=== PATIENT | female | born 1935 | race American Indian/Alaskan Native ===

== ENCOUNTER 2022-09-28 15:16 | Inpatient (IN) ==
[2022-09-28] MEDS ORDERED: ONDANSETRON 4 MG/2 ML VIAL IV ONE (15:29)
--- NOTE | 2022-09-28 15:29 | Emergency Department Note ---
Weakness HPI General Chief complaint: Weakness Stated complaint: WEAKNESS Time Seen by Provider: 09/28/22 15:29 Source: family Mode of arrival: wheelchair Limitations: no limitations History of Present Illness HPI Narrative: Narrative: Patient is an 87-year-old female who presents to the emergency department today with chief complaint of generalized weakness, decreased appetite, nausea, and couple episodes of vomiting over the last couple of days. She has had decreased appetite over the last 2 days and has been lying more in bed. Patient recently developed abscess to the left wrist and elbow and was seen here in the emergency department on September 21, 2022 and started on doxycycline for cellulitis. She was seen by a primary care provider on September 23, 2022 at [facility]. She was complaining of nausea and generalized weakness and developed a larger abscess so she was advised by her PCP to go to the emergency department. She was evaluated for second time here at [facility] emergency department on September 23, 2022 were the left wrist and elbow was x-rayed that did not show any evidence of osteomyelitis. Dr. Crooks had perfromed I&D of the abscesses and at the patient's stop doxycycline and start Bactrim DS. Culture was obtained and results of culture is MRSA positive. Patient has been taking the Bactrim DS and holding her potassium as recommended by her PCP. She has had difficulty keeping down her oral antibiotics over the last couple of days due to nausea and she has been experiencing increased generalized weakness and feeling ill. She has had a cough that is slightly productive of white to light yellow-colored products. She denies any chest pain or shortness of breath. She has had some nausea with 1 episode of vomiting. She has not had any abdominal pains. She does report that she feels slightly confused. Her family members that are here today indicate that she has been sli ghtly more confused than normal and been very weak not wanting to get out of bed. Patient denies having any fevers but has felt chilled at times. Patient describes aching pain to the left wrist and elbow. She has been taking hydrocodone that was prescribed by her primary care but feels that this has not been helpful with managing her pain. Related Data Home Medications Medication Instructions Recorded Confirmed Spiriva 1 tab PO DAILY 01/13/19 11/26/21 albuterol sulfate 2.5 mg/3 mL 1 puff PO DAILY 01/13/19 11/26/21 (0.083 %) solution for nebulization ferrous gluconate 324 mg (37.5 mg 324 mg PO DAILY 01/13/19 11/26/21 iron) tablet folic acid 1 mg tablet 1 mg PO DAILY 01/13/19 11/26/21 carvedilol 12.5 mg tablet 12.5 mg PO BID 02/15/21 11/26/21 cetirizine 10 mg tablet (All Day 10 mg PO QDAY PRN 02/15/21 11/26/21 Allergy (cetirizine)) ergocalciferol (vitamin D2) 1,250 1,250 mcg PO QWEEK 02/15/21 11/26/21 mcg (50,000 unit) capsule famotidine 40 mg tablet 20 mg PO QDAY 02/15/21 11/26/21 amlodipine 5 mg tablet 5 mg PO QDAY 04/19/21 11/26/21 simvastatin 40 mg tablet 40 mg PO DAILY 04/19/21 11/26/21 Previous Rx's Medication Instructions Recorded cefdinir 300 mg capsule 300 mg PO BID #4 caps 07/13/22 albuterol sulfate 2.5 mg/3 mL 2.5 mg (3 mL) inhalation Q4H PRN 08/17/22 (0.083 %) solution for nebulization shortness of breath or wheezing #75 mL albuterol sulfate 90 mcg/actuation 2 puff inhalation Q6H PRN 08/17/22 aerosol inhaler (ProAir HFA) shortness of breath or wheezing #6.7 grams furosemide 20 mg tablet 20 mg PO QAM #5 tabs 08/17/22 losartan 100 mg tablet 100 mg PO QDAY #7 tabs 08/17/22 sulfamethoxazole 800 1 tab PO BID 14 days #28 tabs 09/23/22 mg-trimethoprim 160 mg tablet (Bactrim DS) Allergies Allergy/AdvReac Type Severity Reaction Status Date / Time amitriptyline [AMITRIPTYLINE] Allergy Intermediate Hives Verified 09/28/22 15:20 Review of Systems ROS ROS Narrative: Narrative: All systems ED: reviewed and negative except as stated. [facility] Narrative Patient History Narrative: Narrative: Medical/Surgical/Family History All Active Problems (Updated 09/28/22 @ 18:19 by NIKOLAY Randolph) Septic shock (Chronic) Choledocholithiasis with acute cholecystitis with obstruction (Chronic) Chronic kidney disease (Chronic) Metabolic acidosis, increased anion gap (Chronic) Globus sensation (Chronic) COPD (chronic obstructive pulmonary disease) (Chronic) Chronic sciatica (Chronic) Unstable angina (Chronic) Smoker (Chronic) Lichen planus (Chronic) Varicose veins of lower extremity (Chronic) Chronic ischemic heart disease (Chronic) Hypertensive disorder (Chronic) Osteoporosis (Chronic) Infection of skin (Chronic) 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) Erythematous rash (Chronic) Hip pain (Chronic) Skin tear (Chronic) Right shoulder pain (Chronic) Hearing loss (Chronic) Low back pain (Chronic) Presbyopia (Chronic) 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) Peripheral retinal degeneration (Chronic) Regular astigmatism (Chronic) Hypermetropia (Chronic) After cataract not obscuring vision (Chronic) Arcus senilis (Chronic) Onychogryposis (Chronic) Vitamin D deficiency (Chronic) Xeroderma (Chronic) Chronic nonmalignant pain (Chronic) Emphysema lung (Chronic) GERD (gastroesophageal reflux disease) (Chronic) Stage 1 chronic kidney disease due to benign hypertension (Chronic) Scoliosis of lumbar spine (Chronic) Contusion of rib on left side (Chronic) Right hip pain (Chronic) Bilateral foot pain (Chronic) Serum creatinine raised (Chronic) Osteoarthritis of right knee (Chronic) Tinea corporis (Chronic) Right knee pain (Chronic) Abscess of Bartholin's gland (Chronic) Ingrowing toenail (Chronic) Paronychia of toe of left foot (Chronic) Neurodermatitis (Chronic) Candidiasis of vagina (Chronic) Candidal intertrigo (Chronic) Right inguinal pain (Chronic) Esophageal dysphagia (Chronic) Abnormal urine odor (Chronic) Chronic right-sided low back pain with sciatica (Chronic) Lumbar radiculopathy (Chronic) Facet arthropathy (Chronic) Spondylosis (Chronic) Greater trochanteric bursitis of right hip (Chronic) History of tuberculosis (Chronic) Pancreatitis (Chronic) Anxiety (Chronic) Depression (Chronic) Hypertensive urgency (Chronic) MARIBEL positive (Chronic) Acquired ichthyosis (Chronic) Age-related osteoporosis without current pathological fracture (Chronic) Cellulitis (Chronic) Chest pain (Chronic) GERD without esophagitis (Chronic) Hypertensive nephropathy (Chronic) Pain, joint, shoulder (Chronic) Nicotine dependence (Chronic) Other chronic pain (Chronic) Other megaloblastic anemias, 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) Other secondary cataract, unspecified eye (Chronic) Polyarthropathy of ankle and foot (Acute) CKD (chronic kidney disease) stage 4, GFR 15-29 ml/min (Chronic) Eosinophilia (Acute) Metabolic acidosis with normal anion gap and failure of bicarbonate regeneration (Acute) H/O right nephrectomy (Chronic) HTN (hypertension), benign (Acute) CKD (chronic kidney disease) stage 3, GFR 30-59 ml/min (Acute) Pneumonia (Acute) Acute exacerbation of chronic obstructive airways disease (Acute) Cellulitis (Acute) Lymphangitis (Acute) Abscess of left elbow (Acute) Abscess of skin of left wrist (Acute) Cellulitis and abscess of other specified site (Acute) Nausea & vomiting (Acute) Acute kidney failure (Acute) Medical History Abnormal urine odor Abscess of Bartholin's gland Acquired ichthyosis After cataract not obscuring vision Age-related osteoporosis without current pathological fracture MARIBEL positive Anxiety Arcus senilis Bilateral foot pain Candidal intertrigo Candidiasis of vagina Cellulitis Left Forearm and Right Forearm Chest pain Choledocholithiasis with acute cholecystitis with obstruction Chronic ischemic heart disease Chronic kidney disease Chronic nonmalignant pain Chronic right-sided low back pain with sciatica Chronic sciatica Combined B12 and folate deficiency anemia Contusion of rib on left side COPD (chronic obstructive pulmonary disease) Depression Emphysema lung Erythematous rash Esophageal dysphagia Facet arthropathy GERD without esophagitis Globus sensation Greater trochanteric bursitis of right hip Hearing loss Hip pain History of tuberculosis Hypermetropia Hypertensive disorder Hypertensive nephropathy Infection of skin Ingrowing toenail Lichen planus Low back pain Lumbar radiculopathy Metabolic acidosis, increased anion gap Neurodermatitis Nicotine dependence Nonexudative age-related macular degeneration Onychogryposis Osteoarthritis of right knee Other chronic pain Other megaloblastic anemias, not elsewhere classified Other secondary cataract, unspecified eye Pain, joint, shoulder Right Pancreatitis Paronychia of toe of left foot Peripheral retinal degeneration Presbyopia Regular astigmatism Right hip pain Right inguinal pain Right knee pain Right shoulder pain Scoliosis of lumbar spine Septic shock Serum creatinine raised Skin tear Smoker Spondylosis Stage 1 chronic kidney disease due to benign hypertension Tinea corporis Unstable angina Varicose veins of lower extremity Vitamin D deficiency Xeroderma Senile Surgical History History of surgery Broke hip and pelvis. No pertinent past surgical history Family History Brother Hypertension Diabetes mellitus Heart disease Stroke Cancer Alcohol abuse Grandfather Psoriasis Father , 60 Emphysema lung Mother , 60 Diabetes mellitus Hypertension Heart disease Other Tuberculosis Social History Smoking Status: Former smoker Alcohol Intake Frequency: former alcohol drinker Exam Narrative Narrative: Narrative: General Limitations: no limitations General appearance: Present alert, grimacing and thin Eye Eye: Present normal appearance and PERRL; Absent scleral icterus ENT ENT: Present mucous membranes dry Neck Neck: Present normal inspection and full ROM; Absent lymphadenopathy Chest Chest: Present normal inspection and symmetric chest wall rise Respiratory Respiratory: Present other (Lung sounds clear to auscultate with mild rhonchi heard in the right middle lobe.); Absent respiratory distress or accessory muscle use Cardiovascular Cardiovascular: Present regular rate and normal rhythm Adbominal Abdominal: Present soft; Absent distention, tenderness or mass Extremities Extremities: Present full ROM and normal capillary refill Neurological Neurological: Present alert and oriented X3 Skin Skin: Present other (Wound to the flexor portion of the left wrist and left elbow at the antecubital space. Wound bed is pink with mild erythema. There is some erythema that extends from outside of wound. Moderate serosanguineous discharge. Moderate odor. Left arm tender to palpate.) Course Vital Signs Vital signs: Vital Signs Temperature 97.5 F 09/28/22 15:17 Pulse Rate 73 09/28/22 15:17 Respiratory Rate 22 09/28/22 15:17 Blood Pressure 108/61 09/28/22 15:17 Pulse Oximetry (%) 96 09/28/22 15:17 Oxygen Delivery Method Room Air 09/28/22 15:17 Temperature 97.5 F 09/28/22 15:17 Pulse Rate 73 09/28/22 15:17 Respiratory Rate 22 09/28/22 15:17 Blood Pressure 108/61 09/28/22 15:17 Pulse Oximetry (%) 96 09/28/22 15:17 Oxygen Delivery Method Room Air 09/28/22 15:17 [facility] MDM Narrative Medical decision making narrative: Narrative: Patient is an 87-year-old female who is being seen in the emergency department today for the third time this week. She initially was seen on September 21, 2022 and diagnosed with cellulitis of the left wrist and elbow. She was started on doxycycline, however follow-up with her PCP on September 23, 2022 revealed large abscess and she was feeling nauseated with vomiting so she was advised to go to the emergency department and was seen here September 23, 2022. On September 23 an I&D was performed and antibiotic was changed from doxycycline to Bactrim. Patient has been taking Bactrim over the last couple of days and today presented to the emergency department with complaint of increased weakness, nausea, vomiting. She has pain to the left elbow and wrist. Patient was given 1 L of IV normal saline for hydration, 4 mg ondansetron for nausea, 0.5 mg of Dilaudid for pain management. Labs were obtained today. Patient's wound culture had grew MRSA. Her white count today is elevated at 21,000. She was given 1 g of IV vancomycin. Patient's chest x-ray does not show any definite infiltrate today. Her procalcitonin has trended down since September 23, 2022 that was 4.56, but is still elevated today at 0.99. Patient's urine does not show any definite sign of infection today. 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 Today renal function has worsened with a creatinine of 2.7 with BUN of 138. This change in renal function may be related to dehydration due to the patient not drinking fluids over the last couple of days and lying in bed. She was given 1 L of IV normal saline today for hydration. Her blood pressure is 108/61 with pulse of 73. Oxygen saturation 96% on room air. I would recommend considering discontinuing the home use of furosemide diuretic due to the elevation of her renal function. Patient was ordered another 650 mL of IV fluid in the emergency department today to bolus 30 mL/kg. Given that the patient is having generalized weakness, leukocytosis, nausea and vomiting I feel that she would be considered a candidate for hospital admission today at [facility] for cellulitis. Patient's blood cultures were obtained prior to the vancomycin infusion today. I was able to speak with Dr. Murguia who is on today for hospitalist. He excepted patient for hospital admission at [facility] today. Lab Data Lab results reviewed: Yes I reviewed the patient's lab results. 09/28/22 15:25 Labs: Lab Results 09/28/22 09/28/22 09/28/22 Range/Units 15:25 15:25 15:25 WBC 21.0 H (4.5-11.0) K/mcL RBC 3.36 L (3.59-5.38) M/mcL Hgb 10.1 L (11.2-15.7) g/dL Hct 32.3 L (34.1-44.9) % POC Hct (36-48) MCV 96.1 (80.0-100.0) fL MCH 30.1 (26.0-34.0) pg MCHC 31.3 (31.0-36.0) g/dL RDW 15.5 H (11.5-14.5) % Plt Count 258 (140-440) K/mcL MPV 10.5 (8.8-12.5) fL Immature Gran % (Auto) 1.0 H (0.0-0.5) % Neut % (Auto) 86.8 H (38.0-78.0) % Lymph % (Auto) 5.8 L (15.5-49.0) % Kerr % (Auto) 6.1 (1.0-12.0) % Eos % (Auto) 0.1 (0.0-7.0) % Baso % (Auto) 0.2 (0.0-2.0) % Lymph # (Auto) 1.21 L (1.50-4.80) K/mcL Kerr # (Auto) 1.28 H (0.10-0.90) K/mcL Eos # (Auto) 0.03 (0.00-0.70) K/mcL Baso # (Auto) 0.05 (0.00-0.30) K/mcL Immature Gran # 0.22 H (0.00-0.05) K/mcl Absolute Neutrophils 18.25 H (1.80-8.00) K/mcL POC VBG pH (7.32-7.42) POC VBG pCO2 at Temp (41-51) POC VBG pO2 (25-40) POC VBG HCO3 (24-28) POC VBG Total CO2 (25-29) POC Venous O2 Sat (40-70) POC VBG Base Excess (-2-2) VBG Lactic Acid (0.5-2) POC Sodium (133-145) POC Potassium (3.3-5.1) POC Chloride (96-108) POC Total CO2 (22-30) POC BUN (6-20) POC Creatinine (0.6-1.2) POC Glucose (70-105) POC WB Ioniz Calcium (1.16-1.32) Total Bilirubin 0.3 (0.1-1.0) mg/dL Direct Bilirubin < 0.2 (0-0.3) mg/dL AST 26 (<32) U/L ALT 23 (<40) U/L Alkaline Phosphatase 281 H (39-117) U/L Total Protein 6.6 (5.9-8.4) gm/dL Albumin 3.0 L (3.2-5.2) gm/dL Globulin 3.6 (2.2-3.7) gm/dL Procalcitonin 0.99 H (<0.10) ng/mL 09/28/22 09/28/22 Range/Units 15:29 15:45 WBC (4.5-11.0) K/mcL RBC (3.59-5.38) M/mcL Hgb (11.2-15.7) g/dL Hct (34.1-44.9) % POC Hct 31.0 L (36-48) MCV (80.0-100.0) fL MCH (26.0-34.0) pg MCHC (31.0-36.0) g/dL RDW (11.5-14.5) % Plt Count (140-440) K/mcL MPV (8.8-12.5) fL Immature Gran % (Auto) (0.0-0.5) % Neut % (Auto) (38.0-78.0) % Lymph % (Auto) (15.5-49.0) % Kerr % (Auto) (1.0-12.0) % Eos % (Auto) (0.0-7.0) % Baso % (Auto) (0.0-2.0) % Lymph # (Auto) (1.50-4.80) K/mcL Kerr # (Auto) (0.10-0.90) K/mcL Eos # (Auto) (0.00-0.70) K/mcL Baso # (Auto) (0.00-0.30) K/mcL Immature Gran # (0.00-0.05) K/mcl Absolute Neutrophils (1.80-8.00) K/mcL POC VBG pH 7.32 (7.32-7.42) POC VBG pCO2 at Temp 35.9 L (41-51) POC VBG pO2 73 H (25-40) POC VBG HCO3 18.6 L (24-28) POC VBG Total CO2 20.0 L (25-29) POC Venous O2 Sat 93.0 H (40-70) POC VBG Base Excess -7.0 L (-2-2) VBG Lactic Acid 1.0 (0.5-2) POC Sodium 146 H (133-145) POC Potassium 5.2 H (3.3-5.1) POC Chloride 119 H (96-108) POC Total CO2 19.0 L (22-30) POC BUN 138 H* (6-20) POC Creatinine 2.7 H (0.6-1.2) POC Glucose 97 (70-105) POC WB Ioniz Calcium 1.37 H (1.16-1.32) Total Bilirubin (0.1-1.0) mg/dL Direct Bilirubin (0-0.3) mg/dL AST (<32) U/L ALT (<40) U/L Alkaline Phosphatase (39-117) U/L Total Protein (5.9-8.4) gm/dL Albumin (3.2-5.2) gm/dL Globulin (2.2-3.7) gm/dL Procalcitonin (<0.10) ng/mL Radiology Data Radiology results reviewed: Yes I reviewed the patient's radiology results. Radiology results narrative: Ordering Physician:Zhen Zabala Date of Service:09/28/22 Procedure(s):XR chest 1V INDICATION: cough TECHNIQUE: AP portable supine chest x-ray COMPARISON: Previous chest x-rays dated 08/17/2022, 08/16/2022, 07/13/2022 FINDINGS: Lungs:Prominent interstitial markings are unchanged. No acute parenchymal infiltrate. Possible focal mass at the right lung base. This is not identified on previous PA and lateral chest x-ray dated 08/17/2022. Follow-up PA and lateral chest x-ray recommended when clinically appropriate. Heart, vascular:No significant cardiomegaly. Pulmonary vascularity is normal. No pulmonary edema or pulmonary congestion Mediastinum, kishan:No mediastinal widening. No hilar mass Pleura:No pleural fluid. No pleural-based mass or calcification Skeletal:Negative. IMPRESSION: 1. Possible right basilar nodule. Recommend PA and lateral chest x-ray 2. No other abnormality Interpreted and Authenticated by: Ryan Mancini 09/28/22 Discharge Plan Patient/Caregiver Discharge Instructions Pt seen by ENVIRONMENTAL SERVICE AIDE/PA only: No Clinical Impression: CKD (chronic kidney disease) stage 4, GFR 15-29 ml/min, Cellulitis and abscess of other specified site, Nausea & vomiting, Acute kidney failure Patient Disposition: Xfer As Inpt ([facility]) Discharge Date/Time: 09/28/22 19:13
[2022-09-28 15:34] LABS: POC Calcium, Ionized 1.37 (1.16-1.32); POC Creatinine 2.7 (0.6-1.2); POC Potassium 5.2 (3.3-5.1)
[2022-09-28] MEDS ORDERED: HYDROmorphone 0.5 MG/0.5 ML SYRINGE IV PRN (15:41)
[2022-09-28] MEDS ORDERED: 0.9 % SODIUM CHLORIDE 1,000 ML IV ONE ×2 (15:41→18:10)
[2022-09-28 16:01] LABS: Basophils # (Auto) 0.05 K/mcL (0.00-0.30); Basophils % (Auto) 0.2 % (0.0-2.0); Eosinophils # (Auto) 0.03 K/mcL (0.00-0.70); Eosinophils % (Auto) 0.1 % (0.0-7.0); Hematocrit 32.3 % (34.1-44.9); Hemoglobin 10.1 g/dL (11.2-15.7); Lymphocytes # (Auto) 1.21 K/mcL (1.50-4.80); Lymphocytes % (Auto) 5.8 % (15.5-49.0); Mean Cell Volume 96.1 fL (80.0-100.0); Mean Corpuscular HGB Conc 31.3 g/dL (31.0-36.0); Mean Platelet Volume 10.5 fL (8.8-12.5); Monocytes # (Auto) 1.28 K/mcL (0.10-0.90); Monocytes % (Auto) 6.1 % (1.0-12.0); Neutrophils % (Auto) 86.8 % (38.0-78.0); Platelet Count 258 K/mcL (140-440); RBC 3.36 M/mcL (3.59-5.38); Red Cell Distribution Width 15.5 % (11.5-14.5)
[2022-09-28] MEDS ORDERED: VANCOMYCIN 1,000 MG in 0.9 % SODIUM CHLORIDE 250 ML IV ONE (16:10)
[2022-09-28 16:33] LABS: ALT/SGPT 23 U/L (<40); AST/SGOT 26 U/L (<32); Alkaline Phosphatase 281 U/L (39-117); Bilirubin,Direct < 0.2 mg/dL (0-0.3); Bilirubin,Total 0.3 mg/dL (0.1-1.0); Globulin 3.6 gm/dL (2.2-3.7)
--- NOTE | 2022-09-28 16:54 | XRay Report ---
INDICATION: cough TECHNIQUE: AP portable supine chest x-ray COMPARISON: Previous chest x-rays dated 08/17/2022, 08/16/2022, 07/13/2022 FINDINGS: Lungs:Prominent interstitial markings are unchanged. No acute parenchymal infiltrate. Possible focal mass at the right lung base. This is not identified on previous PA and lateral chest x-ray dated 08/17/2022. Follow-up PA and lateral chest x-ray recommended when clinically appropriate. Heart, vascular:No significant cardiomegaly. Pulmonary vascularity is normal. No pulmonary edema or pulmonary congestion Mediastinum, kishan:No mediastinal widening. No hilar mass Pleura:No pleural fluid. No pleural-based mass or calcification Skeletal:Negative. IMPRESSION: 1. Possible right basilar nodule. Recommend PA and lateral chest x-ray 2. No other abnormality Interpreted and Authenticated by: Ryan Mancini 09/28/22
--- NOTE | 2022-09-28 18:06 | Internal Med History&Physical ---
HPI History of Present Illness Patient information: Note initiated : 09/28/22 at 6:04 pm Service Date, if different from initiated Date: [] Patient: Anahi Lebron 87 y/o F admitted on for WEAKNESS. Chief Complaint: [] History of present illness: Ms. 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 The patient was prescribed doxycycline and discharged to home. She later developed abscesses on her left wrist and left elbow. The patient presented once again to the emergency department on 09/23/2022 and the abscesses were lanced and cultured, the patient was prescribed Bactrim and discharged to home. The cultures did grow MRSA that was sensitive to both doxycycline and Bactrim. The patient developed nausea and vomiting on about 09/25/2022 then became progressively weaker. The patient returned to the ED on 09/28/2022, the day of admission and was found to be septic with an acute on chronic kidney disease injury, mild hyperkalemia in addition generalized weakness. The patient has not been able to take her oral antibiotics due to nausea and vomiting. Hospital medicine was asked to admit the patient for severe sepsis, acute on chronic kidney disease injury and intractable nausea and vomiting. Review of systems Constitutional: no fever, fatigue, or weight loss Eyes: no vision changes or pain Cardiovascular: no chest pain, no palpitations Respiratory: Positive for cough Gastrointestinal: Positive for nausea and vomiting, no abdominal pain Genitourinary: no dysuria or difficulty voiding Musculoskeletal: no arthralgia or myalgia Integumentary: Positive for left elbow and left wrist abscesses Neurological: no focal weakness or numbness Psychiatric: no anxiety or depression Physical exam Head: Atraumatic, normal inspection. Eyes: normal appearance, no scleral icterus. Neck: full ROM Respiratory: no respiratory distress. Cardiovascular: normal rate and rhythm, S1, S2. GI/Abdominal: soft, nontender, no guarding. Extremities: full range of motion, nontender. Neurological: CN II-XII intact, intact motor, intact sensation. Psychiatric: normal mood. Skin: Left upper extremity abscesses covered with clean bandage. PFSH PFSH All Active Problems (Updated 09/28/22 @ 18:19 by Zhen Zabala [facility]) Septic shock (Chronic) Choledocholithiasis with acute cholecystitis with obstruction (Chronic) Chronic kidney disease (Chronic) Metabolic acidosis, increased anion gap (Chronic) Globus sensation (Chronic) COPD (chronic obstructive pulmonary disease) (Chronic) Chronic sciatica (Chronic) Unstable angina (Chronic) Smoker (Chronic) Lichen planus (Chronic) Varicose veins of lower extremity (Chronic) Chronic ischemic heart disease (Chronic) Hypertensive disorder (Chronic) Osteoporosis (Chronic) Infection of skin (Chronic) 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) Erythematous rash (Chronic) Hip pain (Chronic) Skin tear (Chronic) Right shoulder pain (Chronic) Hearing loss (Chronic) Low back pain (Chronic) Presbyopia (Chronic) 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) Peripheral retinal degeneration (Chronic) Regular astigmatism (Chronic) Hypermetropia (Chronic) After cataract not obscuring vision (Chronic) Arcus senilis (Chronic) Onychogryposis (Chronic) Vitamin D deficiency (Chronic) Xeroderma (Chronic) Chronic nonmalignant pain (Chronic) Emphysema lung (Chronic) GERD (gastroesophageal reflux disease) (Chronic) Stage 1 chronic kidney disease due to benign hypertension (Chronic) Scoliosis of lumbar spine (Chronic) Contusion of rib on left side (Chronic) Right hip pain (Chronic) Bilateral foot pain (Chronic) Serum creatinine raised (Chronic) Osteoarthritis of right knee (Chronic) Tinea corporis (Chronic) Right knee pain (Chronic) Abscess of Bartholin's gland (Chronic) Ingrowing toenail (Chronic) Paronychia of toe of left foot (Chronic) Neurodermatitis (Chronic) Candidiasis of vagina (Chronic) Candidal intertrigo (Chronic) Right inguinal pain (Chronic) Esophageal dysphagia (Chronic) Abnormal urine odor (Chronic) Chronic right-sided low back pain with sciatica (Chronic) Lumbar radiculopathy (Chronic) Facet arthropathy (Chronic) Spondylosis (Chronic) Greater trochanteric bursitis of right hip (Chronic) History of tuberculosis (Chronic) Pancreatitis (Chronic) Anxiety (Chronic) Depression (Chronic) Hypertensive urgency (Chronic) MARIBEL positive (Chronic) Acquired ichthyosis (Chronic) Age-related osteoporosis without current pathological fracture (Chronic) Cellulitis (Chronic) Chest pain (Chronic) GERD without esophagitis (Chronic) Hypertensive nephropathy (Chronic) Pain, joint, shoulder (Chronic) Nicotine dependence (Chronic) Other chronic pain (Chronic) Other megaloblastic anemias, 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) Other secondary cataract, unspecified eye (Chronic) Polyarthropathy of ankle and foot (Acute) CKD (chronic kidney disease) stage 4, GFR 15-29 ml/min (Chronic) Eosinophilia (Acute) Metabolic acidosis with normal anion gap and failure of bicarbonate regeneration (Acute) H/O right nephrectomy (Chronic) HTN (hypertension), benign (Acute) CKD (chronic kidney disease) stage 3, GFR 30-59 ml/min (Acute) Pneumonia (Acute) Acute exacerbation of chronic obstructive airways disease (Acute) Cellulitis (Acute) Lymphangitis (Acute) Abscess of left elbow (Acute) Abscess of skin of left wrist (Acute) Cellulitis and abscess of other specified site (Acute) Nausea & vomiting (Acute) Acute kidney failure (Acute) Medical History Abnormal urine odor Abscess of Bartholin's gland Acquired ichthyosis After cataract not obscuring vision Age-related osteoporosis without current pathological fracture MARIBEL positive Anxiety Arcus senilis Bilateral foot pain Candidal intertrigo Candidiasis of vagina Cellulitis Left Forearm and Right Forearm Chest pain Choledocholithiasis with acute cholecystitis with obstruction Chronic ischemic heart disease Chronic kidney disease Chronic nonmalignant pain Chronic right-sided low back pain with sciatica Chronic sciatica Combined B12 and folate deficiency anemia Contusion of rib on left side COPD (chronic obstructive pulmonary disease) Depression Emphysema lung Erythematous rash Esophageal dysphagia Facet arthropathy GERD without esophagitis Globus sensation Greater trochanteric bursitis of right hip Hearing loss Hip pain History of tuberculosis Hypermetropia Hypertensive disorder Hypertensive nephropathy Infection of skin Ingrowing toenail Lichen planus Low back pain Lumbar radiculopathy Metabolic acidosis, increased anion gap Neurodermatitis Nicotine dependence Nonexudative age-related macular degeneration Onychogryposis Osteoarthritis of right knee Other chronic pain Other megaloblastic anemias, not elsewhere classified Other secondary cataract, unspecified eye Pain, joint, shoulder Right Pancreatitis Paronychia of toe of left foot Peripheral retinal degeneration Presbyopia Regular astigmatism Right hip pain Right inguinal pain Right knee pain Right shoulder pain Scoliosis of lumbar spine Septic shock Serum creatinine raised Skin tear Smoker Spondylosis Stage 1 chronic kidney disease due to benign hypertension Tinea corporis Unstable angina Varicose veins of lower extremity Vitamin D deficiency Xeroderma Senile Surgical History History of surgery Broke hip and pelvis. No pertinent past surgical history Family History Brother Hypertension Diabetes mellitus Heart disease Stroke Cancer Alcohol abuse Grandfather Psoriasis Father , 60 Emphysema lung Mother , 60 Diabetes mellitus Hypertension Heart disease Other Tuberculosis Social History (Updated 05/21/21 @ 14:50 by Gela Gutierrez CMA) marital status: single education level: high school smoking status: Former smoker alcohol intake frequency: former alcohol drinker MEDS/ALLERGIES Home Medications and Allergies Home Medications Medication Instructions Recorded Confirmed Type Spiriva 1 tab PO DAILY 01/13/19 11/26/21 History albuterol sulfate 2.5 mg/3 mL 1 puff PO DAILY 01/13/19 11/26/21 History (0.083 %) solution for nebulization ferrous gluconate 324 mg (37.5 mg 324 mg PO DAILY 01/13/19 11/26/21 History iron) tablet folic acid 1 mg tablet 1 mg PO DAILY 01/13/19 11/26/21 History carvedilol 12.5 mg tablet 12.5 mg PO BID 02/15/21 11/26/21 History cetirizine 10 mg tablet (All Day 10 mg PO QDAY PRN 02/15/21 11/26/21 History Allergy (cetirizine)) ergocalciferol (vitamin D2) 1,250 1,250 mcg PO QWEEK 02/15/21 11/26/21 History mcg (50,000 unit) capsule famotidine 40 mg tablet 20 mg PO QDAY 02/15/21 11/26/21 History amlodipine 5 mg tablet 5 mg PO QDAY 04/19/21 11/26/21 History simvastatin 40 mg tablet 40 mg PO DAILY 04/19/21 11/26/21 History cefdinir 300 mg capsule 300 mg PO BID #4 caps 07/13/22 Rx albuterol sulfate 2.5 mg/3 mL 2.5 mg (3 mL) inhalation Q4H PRN 08/17/22 Rx (0.083 %) solution for nebulization shortness of breath or wheezing #75 mL albuterol sulfate 90 mcg/actuation 2 puff inhalation Q6H PRN 08/17/22 Rx aerosol inhaler (ProAir HFA) shortness of breath or wheezing #6.7 grams furosemide 20 mg tablet 20 mg PO QAM #5 tabs 08/17/22 Rx losartan 100 mg tablet 100 mg PO QDAY #7 tabs 08/17/22 Rx sulfamethoxazole 800 1 tab PO BID 14 days #28 tabs 09/23/22 Rx mg-trimethoprim 160 mg tablet (Bactrim DS) Allergies Allergy/AdvReac Type Severity Reaction Status Date / Time amitriptyline [AMITRIPTYLINE] Allergy Intermediate Hives Verified 09/28/22 15:20 EXAM Constitutional Vitals: Temp Pulse Resp BP Pulse Ox O2 Del Method 97.5 F 73 22 108/61 96 Room Air 09/28/22 15:17 09/28/22 15:17 09/28/22 15:17 09/28/22 15:17 09/28/22 15:17 09/28/22 15:17 DATA Data Completed and Pending Labs: Labs from last 24 hours 09/28/22 09/28/22 09/28/22 15:45 15:29 15:25 WBC RBC Hgb Hct POC Hct 31.0 L MCV MCH MCHC RDW Plt Count MPV Immature Gran % (Auto) Neut % (Auto) Lymph % (Auto) [place] % (Auto) Eos % (Auto) Baso % (Auto) Lymph # (Auto) [place] # (Auto) Eos # (Auto) Baso # (Auto) Immature Gran # Absolute Neutrophils POC VBG pH 7.32 POC VBG pCO2 at Temp 35.9 L POC VBG pO2 73 H POC VBG HCO3 18.6 L POC VBG Total CO2 20.0 L POC Venous O2 Sat 93.0 H POC VBG Base Excess -7.0 L VBG Lactic Acid 1.0 POC Sodium 146 H POC Potassium 5.2 H POC Chloride 119 H POC Total CO2 19.0 L POC BUN 138 H* POC Creatinine 2.7 H POC Glucose 97 POC WB Ioniz Calcium 1.37 H Total Bilirubin Direct Bilirubin AST ALT Alkaline Phosphatase Total Protein Albumin Globulin Procalcitonin 0.99 H 09/28/22 09/28/22 15:25 15:25 WBC 21.0 H RBC 3.36 L Hgb 10.1 L Hct 32.3 L POC Hct MCV 96.1 MCH 30.1 MCHC 31.3 RDW 15.5 H Plt Count 258 MPV 10.5 Immature Gran % (Auto) 1.0 H Neut % (Auto) 86.8 H Lymph % (Auto) 5.8 L [place] % (Auto) 6.1 Eos % (Auto) 0.1 Baso % (Auto) 0.2 Lymph # (Auto) 1.21 L [place] # (Auto) 1.28 H Eos # (Auto) 0.03 Baso # (Auto) 0.05 Immature Gran # 0.22 H Absolute Neutrophils 18.25 H POC VBG pH POC VBG pCO2 at Temp POC VBG pO2 POC VBG HCO3 POC VBG Total CO2 POC Venous O2 Sat POC VBG Base Excess VBG Lactic Acid POC Sodium POC Potassium POC Chloride POC Total CO2 POC BUN POC Creatinine POC Glucose POC WB Ioniz Calcium Total Bilirubin 0.3 Direct Bilirubin < 0.2 AST 26 ALT 23 Alkaline Phosphatase 281 H Total Protein 6.6 Albumin 3.0 L Globulin 3.6 Procalcitonin A/P Narrative A/P Narrative: Assessment: 87 year old female with multiple comorbidities per below admitted for severe sepsis secondary to an abscess complicated by acute on chronic kidney disease injury, intractable nausea and vomiting. The patient is hemodynamically stable and lactic acid was normal. 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 -IV fluid, monitor renal function and urine output. -Follow blood cultures x2. -Follow CBC w/ diff and IPP. -Analgesics as needed. -Antiemetic as needed. -PA and lateral chest xray, consider CT chest. -Wound care. -Home medication reconciliation. -Regular diet. -PT consult. -DVT prophylaxis: Heparin SQ. -Disposition: Admit to inpatient PCU status. Time Spent With Patient Time: Total time spent is greater than 50% in coordination of care (as documented) at patient's floor/unit and/or counseling patient:
[2022-09-28] MEDS ORDERED: ACETAMINOPHEN 325 MG TABLET PO PRN (19:22)
[2022-09-28] MEDS ORDERED: ONDANSETRON 4 MG/2 ML VIAL IV PRN (19:22)
[2022-09-28] MEDS ORDERED: LACTULOSE 20 GM/30 ML ORAL.SOL PO PRN (19:22)
[2022-09-28] MEDS ORDERED: SENNOSIDES 1 TABLET PO PRN (19:22)
[2022-09-28] MEDS ORDERED: VANCOMYCIN PER PHARMACY IV ONE (19:22)
[2022-09-28] MEDS: HYDROmorphone 0.5 MG/0.5 ML SYRINGE IV PRN (19:24)
[2022-09-28] MEDS ORDERED: HYDROmorphone 0.5 MG/0.5 ML SYRINGE ONE (19:25)
--- NOTE | 2022-09-28 19:25 | XRay Report ---
INDICATION: Possible basilar node. TECHNIQUE: PA and lateral upright chest x-ray COMPARISON: Previous chest x-ray dated 09/28/2022 FINDINGS: Lungs: Possible nodule at the right cardiophrenic angle on PA projection. This is not well visualized on lateral view but may be in the right lower lobe. Chest CT scan is recommended to determine whether this is a real lesion. No other focal pulmonary parenchymal infiltrate or mass. Heart size and vascularity. No pleural fluid IMPRESSION: 1. Possible right lower lobe nodule 2. Recommend chest CT Interpreted and Authenticated by: Ryan Mancini 09/28/22
[2022-09-28] MEDS: 0.9 % SODIUM CHLORIDE 1,000 ML IV SCH (19:54)
[2022-09-28] MEDS: HEPARIN 5,000 UNIT/ML VIAL SQ SCH (21:29)
[2022-09-28] MEDS: 0.9 % SODIUM CHLORIDE 10 ML SYRINGE IV SCH (21:30)
[2022-09-28] MEDS: DOCUSATE SODIUM 100 MG CAPSULE PO SCH (21:30)
[2022-09-28] MEDS: HYDROcodone/APAP 5/325MG TABLET PO PRN (23:05)
[2022-09-29] MEDS: HYDROmorphone 0.5 MG/0.5 ML SYRINGE IV PRN ×6 (04:14→23:59)
[2022-09-29] MEDS: 0.9 % SODIUM CHLORIDE 1,000 ML IV SCH ×3 (04:15→14:56)
[2022-09-29] MEDS: 0.9 % SODIUM CHLORIDE 10 ML SYRINGE IV SCH ×3 (04:31→20:10)
[2022-09-29 06:10] LABS: Basophils # (Auto) 0.06 K/mcL (0.00-0.30); Basophils % (Auto) 0.4 % (0.0-2.0); Eosinophils # (Auto) 0.26 K/mcL (0.00-0.70); Eosinophils % (Auto) 1.6 % (0.0-7.0); Hematocrit 32.7 % (34.1-44.9); Hemoglobin 9.2 g/dL (11.2-15.7); Lymphocytes # (Auto) 1.03 K/mcL (1.50-4.80); Lymphocytes % (Auto) 6.4 % (15.5-49.0); Mean Cell Volume 107.2 fL (80.0-100.0); Mean Corpuscular HGB Conc 28.1 g/dL (31.0-36.0); Mean Platelet Volume 10.4 fL (8.8-12.5); Monocytes # (Auto) 1.32 K/mcL (0.10-0.90); Monocytes % (Auto) 8.2 % (1.0-12.0); Neutrophils % (Auto) 82.7 % (38.0-78.0); Platelet Count 217 K/mcL (140-440); RBC 3.05 M/mcL (3.59-5.38); Red Cell Distribution Width 15.8 % (11.5-14.5); WBC 16.1 K/mcL (4.5-11.0)
[2022-09-29 06:56] LABS: ALT/SGPT 16 U/L (<40); AST/SGOT 21 U/L (<32); Albumin 2.4 gm/dL (3.2-5.2); Albumin/Globulin Ratio 0.8 (1.0-2.3); Alkaline Phosphatase 231 U/L (39-117); Bilirubin,Direct 0.2 mg/dL (<0.3); Bilirubin,Total 0.5 mg/dL (0.1-1.0); Blood Urea Nitrogen 92 mg/dL (8-23); Calcium 8.3 mg/dL (8.6-10.4); Carbon Dioxide 15 mmol/L (22-30); Chloride 119 mmol/L (96-108); Globulin 3.1 gm/dL (2.2-3.7); Glomerular Filtration Rate 27; Glucose 67 mg/dL (70-105); Lactate Dehydrogenase 191 U/L (135-225); Triglycerides 73 mg/dL (<150); Uric Acid 8.5 mg/dL (2.5-8.0)
[2022-09-29] MEDS ORDERED: VANCOMYCIN PER PHARMACY IV SCH (07:45)
[2022-09-29 09:00] LABS: Vancomycin,Random 8.9 ug/mL
[2022-09-29] MEDS ORDERED: ALBUTEROL SULFATE 2.5 MG/3 ML NEBULIZER INH PRN (09:46)
[2022-09-29] MEDS: DOCUSATE SODIUM 100 MG CAPSULE PO SCH ×2 (10:25→20:09)
[2022-09-29] MEDS: HEPARIN 5,000 UNIT/ML VIAL SQ SCH ×2 (10:25→20:10)
--- NOTE | 2022-09-29 11:54 | Internal Med Progress Note ---
SUBJECTIVE Subjective Patient information: Note initiated : 09/29/22 at 11:54 am Service Date, if different from initiated Date: [] Patient: Anahi Lebron 87 y/o F admitted on 09/28/22 for WEAKNESS. Chief Complaint: [] Interval history: Ms. 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 The patient was prescribed doxycycline and discharged to home. She later developed abscesses on her left wrist and left elbow. The patient presented once again to the emergency department on 09/23/2022 and the abscesses were lanced and cultured, the patient was prescribed Bactrim and discharged to home. The cultures did grow MRSA that was sensitive to both doxycycline and Bactrim. The patient developed nausea and vomiting on about 09/25/2022 then became progressively weaker. The patient returned to the ED on 09/28/2022, the day of admission and was found to be septic with an acute on chronic kidney disease injury, mild hyperkalemia in addition generalized weakness. The patient has not been able to take her oral antibiotics due to nausea and vomiting. Hospital medicine was asked to admit the patient for severe sepsis, acute on chronic kidney disease injury and intractable nausea and vomiting. 09/29 Patient was afebrile overnight, vitals stable. Leukocytosis improving, renal function improving. The patient has an unexpected amount of pain at her left elbow so ordered an MRI left elbow without contrast as the patient also has renal dysfunction. Continue vancomycin IV per pharmacy dosing. Physical exam Head: Atraumatic, normal inspection. Eyes: normal appearance, no scleral icterus. Neck: full ROM Respiratory: no respiratory distress. Cardiovascular: normal rate and rhythm, S1, S2. GI/Abdominal: soft, nontender, no guarding. Extremities: Severe tenderness to palpation at left elbow. Neurological: CN II-XII intact, intact motor, intact sensation. Psychiatric: normal mood. Skin: Left upper extremity abscesses at left elbow and left wrist packed with gauze. Constitutional Vitals: Vital Signs Temp Pulse Resp BP Pulse Ox O2 Del Method 97.9 F 70 20 132/88 99 Room Air 09/29/22 08:01 09/29/22 09:17 09/29/22 09:17 09/29/22 08:01 09/29/22 09:17 09/29/22 08:01 Period Temp Pulse Resp BP Sys/Rogers Pulse Ox O2 Del Method O2 Flow Rate Last 24 Hr 97.2 F-98.3 F 60-77 9-22 108-132/54-88 93-99 Room Air-Room Air Intake and Output 09/28/22 09/29/22 09/29/22 19:59 03:59 11:59 Intake Total 1877 1493 Output Total 476 774 Balance 1877 1017 -774 Weight 55.338 kg 52.787 kg Intake & Output: Intake & Output 09/28/22 09/29/22 09/29/22 19:59 03:59 11:59 Intake Total 1877 1493 Output Total 476 774 Balance 1877 1017 -774 Weight 55.338 kg 52.787 kg Intake: IV 1877 1373 Sodium Chloride 0.9% 1,000 ml @ 1627 1373 125 mls/hr IV .Q8H [facility] Rx#: [id number] Vancomycin 1,000 mg In Sodium 250 Chloride 0.9% 250 ml @ 250 mls/ hr IV ONCE ONE Rx#:[id number] Oral 120 Output: Void Amount 475 770 # of times incontinent of urine 1 4 Other: Meal Breakfast Percent of Meal Consumed 50% Feeding Ability Independent Urine Appearance Clear Clear Urine Color Yellow Yellow # Voids 2 OBJ DATA Labs 09/29/22 05:18 09/29/22 05:18 Labs: Abnormal Lab Results 09/29/22 09/29/22 09/28/22 05:18 05:18 15:45 WBC 16.1 H RBC 3.05 L Hgb 9.2 L Hct 32.7 L POC Hct MCV 107.2 H MCHC 28.1 L RDW 15.8 H Immature Gran % (Auto) 0.7 H Neut % (Auto) 82.7 H Lymph % (Auto) 6.4 L Lymph # (Auto) 1.03 L [place] # (Auto) 1.32 H Immature Gran # 0.11 H Absolute Neutrophils 13.35 H POC VBG pCO2 at Temp 35.9 L POC VBG pO2 73 H POC VBG HCO3 18.6 L POC VBG Total CO2 20.0 L POC Venous O2 Sat 93.0 H POC VBG Base Excess -7.0 L POC Sodium POC Potassium Potassium 5.2 H POC Chloride Chloride 119 H Carbon Dioxide 15 L POC Total CO2 POC BUN BUN 92 H Creatinine 1.7 H POC Creatinine Glucose 67 L Uric Acid 8.5 H Calcium 8.3 L POC WB Ioniz Calcium GGT 201 H Alkaline Phosphatase 231 H Total Protein 5.5 L Albumin 2.4 L Albumin/Globulin Ratio 0.8 L Procalcitonin 09/28/22 09/28/22 09/28/22 15:29 15:25 15:25 WBC RBC Hgb Hct POC Hct 31.0 L MCV MCHC RDW Immature Gran % (Auto) Neut % (Auto) Lymph % (Auto) Lymph # (Auto) [place] # (Auto) Immature Gran # Absolute Neutrophils POC VBG pCO2 at Temp POC VBG pO2 POC VBG HCO3 POC VBG Total CO2 POC Venous O2 Sat POC VBG Base Excess POC Sodium 146 H POC Potassium 5.2 H Potassium POC Chloride 119 H Chloride Carbon Dioxide POC Total CO2 19.0 L POC BUN 138 H* BUN Creatinine POC Creatinine 2.7 H Glucose Uric Acid Calcium POC WB Ioniz Calcium 1.37 H GGT Alkaline Phosphatase 281 H Total Protein Albumin 3.0 L Albumin/Globulin Ratio Procalcitonin 0.99 H 09/28/22 15:25 WBC 21.0 H RBC 3.36 L Hgb 10.1 L Hct 32.3 L POC Hct MCV MCHC RDW 15.5 H Immature Gran % (Auto) 1.0 H Neut % (Auto) 86.8 H Lymph % (Auto) 5.8 L Lymph # (Auto) 1.21 L [place] # (Auto) 1.28 H Immature Gran # 0.22 H Absolute Neutrophils 18.25 H POC VBG pCO2 at Temp POC VBG pO2 POC VBG HCO3 POC VBG Total CO2 POC Venous O2 Sat POC VBG Base Excess POC Sodium POC Potassium Potassium POC Chloride Chloride Carbon Dioxide POC Total CO2 POC BUN BUN Creatinine POC Creatinine Glucose Uric Acid Calcium POC WB Ioniz Calcium GGT Alkaline Phosphatase Total Protein Albumin Albumin/Globulin Ratio Procalcitonin Meds: Medications Acetaminophen (Acetaminophen 325 Mg Tablet) 650 mg PO Q6HP PRN; Protocol PRN Reason: Per Pain Protocol/Fever > 101 Hydrocodone Bitart/Acetaminophen (Hydrocodone/Apap 5/325mg Tablet) 1 tab PO Q4HP PRN; Protocol PRN Reason: Per Pain Protocol Last Admin: 09/28/22 23:05 Dose: 1 tab Albuterol Sulfate (Albuterol Sulfate 2.5 Mg/3 Ml Nebulizer) 2.5 mg INH Q4HP PRN PRN Reason: shortness of breath or wheezing Carvedilol (Carvedilol 12.5 Mg Tablet) 25 mg PO BIDCC [facility]A Cetirizine HCl (Cetirizine 10 Mg Tablet) 10 mg PO HS [facility] Docusate Sodium (Docusate Sodium 100 Mg Capsule) 100 mg PO BID [facility] Last Admin: 09/29/22 10:25 Dose: 100 mg Famotidine (Famotidine 20 Mg Tablet) 20 mg PO BID [facility] Ferrous Gluconate (Ferrous Gluconate 324 Mg Tablet) 324 mg PO DAILY [facility] Folic Acid (Folic Acid 1 Mg Tablet) 1 mg PO DAILY [facility] Heparin Sodium (Porcine) (Heparin 5,000 Unit/Ml Vial) 5,000 unit SQ Q12 [facility] Last Admin: 09/29/22 10:25 Dose: 5,000 unit Hydromorphone HCl (Hydromorphone 0.5 Mg/0.5 Ml Syringe) 0.5 mg IV Q2HP PRN; Protocol PRN Reason: Per Pain Protocol Last Admin: 09/29/22 10:08 Dose: 0.5 mg Sodium Chloride (Sodium Chloride 0.9%) 1,000 mls @ 125 mls/hr IV .Q8H [facility] Last Admin: 09/29/22 04:15 Dose: 125 mls/hr Vancomycin HCl 750 mg/ Sodium (Chloride) 250 mls @ 250 mls/hr IV ONCE ONE Stop: 09/29/22 14:59 Lactulose (Lactulose 20 Gm/30 Ml Oral.Julia) 10 gm PO DAILYP PRN PRN Reason: Constipation Ondansetron HCl (Ondansetron 4 Mg/2 Ml Vial) 4 mg IV Q4HP PRN; Protocol PRN Reason: Nausea And Vomiting Senna (Sennosides 1 Tablet) 2 tab PO HSP PRN PRN Reason: Constipation Simvastatin (Simvastatin 40 Mg Tablet) 20 mg PO HS [facility] Sodium Chloride (0.9 % Sodium Chloride 10 Ml Syringe) 10 ml IV Q8 [facility] Last Admin: 09/29/22 04:31 Dose: Not Given Tiotropium [place] (Tiotropium [place] 18 Mcg Inhalant) 18 mcg INH DAILY [facility] Vancomycin HCl (Vancomycin Per Pharmacy) 1 order IV UD [facility]VIRA; Protocol A/P Narrative A/P Narrative: Assessment: 87 year old female with multiple comorbidities per below admitted for severe sepsis secondary to an abscess complicated by acute on chronic kidney disease injury, intractable nausea and vomiting. The patient is hemodynamically stable and lactic acid was normal. 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 -IV fluid, monitor renal function and urine output. -Follow blood cultures x2. -MRI left elbow without contrast. -CT chest to evaluate for lung nodule/mass. -Follow CBC w/ diff and IPP. -Analgesics as needed. -Antiemetic as needed. -Wound care. -Resume home albuterol, Coreg, cetirizine, Pepcid, simvastatin, Spiriva. -Holding home losartan, furosemide, spironolactone. -Regular diet. -PT consult. -DVT prophylaxis: Heparin SQ. -Disposition: Transfer to [facility]. Time Spent With Patient Time: Total time spent is greater than 50% in coordination of care (as documented) at patient's floor/unit and/or counseling patient: QUALITY VTE Deep Vein Thrombosis/Pulmonary Embolism Present on Admission: No
--- NOTE | 2022-09-29 13:12 | Cat Scan Report ---
INDICATION: Possible lung mass. COMPARISON: Previous chest x-rays dated 09/28/2022, 09/28/2022, 08/17/2022, 02/03/2020 TECHNIQUE: Axial noncontrast enhanced images through the chest. Sagittally and coronally reformatted images. MIP reformatted images. FINDINGS: Lungs:There is moderate centrilobular and paraseptal emphysema with bilateral upper lobe predominance. Appearance is consistent with smoking history. Incidental note is made of a 4 mm right middle lobe pulmonary parenchymal nodule, image 60. This is based against the fissure and is probably a benign lymph node. This is an incidental finding. Previous plain film examinations are suggestive of a possible right basilar nodule near the cardiophrenic angle. There is no corresponding abnormality. No pulmonary parenchymal consolidation. No evidence for pneumonia Mediastinum, vascular:No pathologic mediastinal or hilar adenopathy Thoracic aorta is negative. No aneurysmal dilatation Heart:No significant cardiomegaly. No pericardial effusion. Prominent coronary artery calcification Pleura:No pleural effusion. No pleural-based mass. No pleural calcification Axilla, supraclavicular regions, chest wall:No axillary or supraclavicular adenopathy. Musculoskeletal:Mild compression deformity of the T5 vertebral body. This is unchanged since 02/03/2020 Upper Abdomen:Negative to the limits of noncontrast enhanced examination IMPRESSION: 1. No significant pulmonary nodule identified. No abnormality corresponding to the potential nodule at the right cardiophrenic angle identified on previous chest x-ray 2. Mild T5 compression deformity, unchanged since 02/03/2020 3. Centrilobular and paraseptal emphysema The exam was performed using radiation dose optimization techniques including, but not limited to, automated exposure control, adjustment of the mA and/or kV according to patient size and use of iterative reconstruction technique. Interpreted and Authenticated by: Ryan Mancini 09/29/22
[2022-09-29] MEDS ORDERED: VANCOMYCIN 750 MG in 0.9 % SODIUM CHLORIDE 250 ML IV ONE (14:00)
[2022-09-29] MEDS: CARVEDILOL 12.5 MG TABLET PO SCH (16:05)
[2022-09-29] MEDS: SIMVASTATIN 40 MG TABLET PO SCH (20:09)
[2022-09-29] MEDS: CETIRIZINE 10 MG TABLET PO SCH (20:09)
[2022-09-29] MEDS: FAMOTIDINE 20 MG TABLET PO SCH (20:10)
[2022-09-29] MEDS: HYDROcodone/APAP 5/325MG TABLET PO PRN (20:20)
[2022-09-30] MEDS: 0.9 % SODIUM CHLORIDE 1,000 ML IV SCH (02:05)
[2022-09-30] MEDS: HYDROmorphone 0.5 MG/0.5 ML SYRINGE IV PRN (04:11)
[2022-09-30] MEDS: 0.9 % SODIUM CHLORIDE 10 ML SYRINGE IV SCH ×3 (04:50→21:26)
[2022-09-30] MEDS: HYDROcodone/APAP 5/325MG TABLET PO PRN ×3 (05:04→16:15)
[2022-09-30 06:01] LABS: Basophils # (Auto) 0.05 K/mcL (0.00-0.30); Basophils % (Auto) 0.4 % (0.0-2.0); Eosinophils # (Auto) 0.33 K/mcL (0.00-0.70); Eosinophils % (Auto) 2.8 % (0.0-7.0); Hematocrit 29.5 % (34.1-44.9); Hemoglobin 8.8 g/dL (11.2-15.7); Lymphocytes # (Auto) 1.04 K/mcL (1.50-4.80); Lymphocytes % (Auto) 8.7 % (15.5-49.0); Mean Corpuscular HGB Conc 29.8 g/dL (31.0-36.0); Mean Platelet Volume 10.2 fL (8.8-12.5); Monocytes # (Auto) 0.94 K/mcL (0.10-0.90); Monocytes % (Auto) 7.9 % (1.0-12.0); Neutrophils % (Auto) 79.6 % (38.0-78.0); Platelet Count 243 K/mcL (140-440); RBC 2.98 M/mcL (3.59-5.38); Red Cell Distribution Width 15.1 % (11.5-14.5); WBC 11.9 K/mcL (4.5-11.0)
[2022-09-30 06:22] LABS: ALT/SGPT 16 U/L (<40); AST/SGOT 20 U/L (<32); Albumin 2.4 gm/dL (3.2-5.2); Albumin/Globulin Ratio 0.7 (1.0-2.3); Alkaline Phosphatase 270 U/L (39-117); Bilirubin,Direct 0.3 mg/dL (<0.3); Bilirubin,Total 0.5 mg/dL (0.1-1.0); Blood Urea Nitrogen 47 mg/dL (8-23); Calcium 8.7 mg/dL (8.6-10.4); Carbon Dioxide 17 mmol/L (22-30); Chloride 118 mmol/L (96-108); Globulin 3.3 gm/dL (2.2-3.7); Glomerular Filtration Rate 51; Glucose 63 mg/dL (70-105); Lactate Dehydrogenase 192 U/L (135-225); Phosphorous 2.9 mg/dL (2.5-4.5); Triglycerides 90 mg/dL (<150); Uric Acid 7.9 mg/dL (2.5-8.0)
[2022-09-30] MEDS: FAMOTIDINE 20 MG TABLET PO SCH ×2 (08:28→21:26)
[2022-09-30] MEDS: DOCUSATE SODIUM 100 MG CAPSULE PO SCH ×2 (08:28→21:25)
[2022-09-30] MEDS: CARVEDILOL 12.5 MG TABLET PO SCH ×2 (08:28→17:39)
[2022-09-30] MEDS: FOLIC ACID 1 MG TABLET PO SCH (08:28)
[2022-09-30] MEDS: HEPARIN 5,000 UNIT/ML VIAL SQ SCH ×2 (08:28→21:26)
[2022-09-30] MEDS: FERROUS GLUCONATE 324 MG TABLET PO SCH (08:28)
--- NOTE | 2022-09-30 08:45 | Internal Med Progress Note ---
SUBJECTIVE Subjective Patient information: Note initiated : 09/30/22 at 8:43 am Service Date, if different from initiated Date: [] Patient: Anahi Lebron 87 y/o F admitted on 09/28/22 for WEAKNESS. Chief Complaint: [] Interval history: Ms. 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 The patient was prescribed doxycycline and discharged to home. She later developed abscesses on her left wrist and left elbow. The patient presented once again to the emergency department on 09/23/2022 and the abscesses were lanced and cultured, the patient was prescribed Bactrim and discharged to home. The cultures did grow MRSA that was sensitive to both doxycycline and Bactrim. The patient developed nausea and vomiting on about 09/25/2022 then became progressively weaker. The patient returned to the ED on 09/28/2022, the day of admission and was found to be septic with an acute on chronic kidney disease injury, mild hyperkalemia in addition generalized weakness. The patient has not been able to take her oral antibiotics due to nausea and vomiting. Hospital medicine was asked to admit the patient for severe sepsis, acute on chronic kidney disease injury and intractable nausea and vomiting. 09/29 Patient was afebrile overnight, vitals stable. Leukocytosis improving, renal function improving. The patient has an unexpected amount of pain at her left elbow so ordered an MRI left elbow without contrast as the patient also has renal dysfunction. Continue vancomycin IV per pharmacy dosing. 09/30 Vitals stable overnight, no significant nighttime issues. Leukocytosis improving, hemoglobin has trended down to 8.8. Creatinine normal now. IV fluid discontinued. The patient continues to endorse left elbow tenderness, MRI left elbow ordered. Consulted Dr. Ortiz to evaluate the patient's left upper extremity wounds. CT chest did not show any pulmonary nodules or masses that were suspected on chest x-ray. Physical exam Head: Atraumatic, normal inspection. Eyes: normal appearance, no scleral icterus. Neck: full ROM Respiratory: no respiratory distress. Cardiovascular: normal rate and rhythm, S1, S2. GI/Abdominal: soft, nontender, no guarding. Extremities: Severe tenderness to palpation at left elbow. Neurological: CN II-XII intact, intact motor, intact sensation. Psychiatric: normal mood. Skin: Left upper extremity abscesses at left elbow and left wrist packed with gauze. Constitutional Vitals: Vital Signs Temp Pulse Resp BP Pulse Ox O2 Del Method 97.4 F 80 24 H 159/85 95 Room Air 09/30/22 04:01 09/30/22 06:01 09/30/22 06:01 09/30/22 06:01 09/30/22 06:01 09/29/22 19:55 Period Temp Pulse Resp BP Sys/Rogers Pulse Ox O2 Del Method O2 Flow Rate Last 24 Hr 97.4 F-98.3 F 55-80 10-24 106-159/54-85 94-99 Room Air-Room Air Intake and Output 09/29/22 09/30/22 09/30/22 19:59 03:59 11:59 Intake Total 1450 938 240 Output Total 200 1 1 Balance 1250 937 239 Weight 53.116 kg Intake & Output: Intake & Output 09/29/22 09/30/22 09/30/22 19:59 03:59 11:59 Intake Total 1450 938 240 Output Total 200 1 1 Balance 1250 937 239 Weight 53.116 kg Intake: IV 1250 938 Sodium Chloride 0.9% 1,000 ml @ 1000 938 75 mls/hr IV .[id number] [facility] Rx#: [id number] Vancomycin 750 mg In Sodium 250 Chloride 0.9% 250 ml @ 250 mls/ hr IV ONCE ONE Rx#:[id number] Oral 200 0 240 Output: Void Amount 200 # of times incontinent of urine 1 1 Other: Meal Dinner Percent of Meal Consumed Refused Urine Appearance Clear Urine Color Yellow OBJ DATA Labs 09/30/22 05:26 09/30/22 05:26 Labs: Abnormal Lab Results 09/30/22 09/30/22 09/29/22 05:26 05:26 05:18 WBC 11.9 H RBC 2.98 L Hgb 8.8 L Hct 29.5 L POC Hct MCV MCHC 29.8 L RDW 15.1 H Immature Gran % (Auto) 0.6 H Neut % (Auto) 79.6 H Lymph % (Auto) 8.7 L Lymph # (Auto) 1.04 L Cochran # (Auto) 0.94 H Immature Gran # 0.07 H Absolute Neutrophils 9.49 H POC VBG pCO2 at Temp POC VBG pO2 POC VBG HCO3 POC VBG Total CO2 POC Venous O2 Sat POC VBG Base Excess POC Sodium POC Potassium Potassium 5.5 H 5.2 H POC Chloride Chloride 118 H 119 H Carbon Dioxide 17 L 15 L POC Total CO2 Anion Gap 7.0 L POC BUN BUN 47 H 92 H Creatinine 1.7 H POC Creatinine Glucose 63 L 67 L Uric Acid 8.5 H Calcium 8.3 L POC WB Ioniz Calcium Direct Bilirubin 0.3 H GGT 228 H 201 H Alkaline Phosphatase 270 H 231 H Total Protein 5.7 L 5.5 L Albumin 2.4 L 2.4 L Albumin/Globulin Ratio 0.7 L 0.8 L Procalcitonin 09/29/22 09/28/22 09/28/22 05:18 15:45 15:29 WBC 16.1 H RBC 3.05 L Hgb 9.2 L Hct 32.7 L POC Hct 31.0 L MCV 107.2 H MCHC 28.1 L RDW 15.8 H Immature Gran % (Auto) 0.7 H Neut % (Auto) 82.7 H Lymph % (Auto) 6.4 L Lymph # (Auto) 1.03 L Cochran # (Auto) 1.32 H Immature Gran # 0.11 H Absolute Neutrophils 13.35 H POC VBG pCO2 at Temp 35.9 L POC VBG pO2 73 H POC VBG HCO3 18.6 L POC VBG Total CO2 20.0 L POC Venous O2 Sat 93.0 H POC VBG Base Excess -7.0 L POC Sodium 146 H POC Potassium 5.2 H Potassium POC Chloride 119 H Chloride Carbon Dioxide POC Total CO2 19.0 L Anion Gap POC BUN 138 H* BUN Creatinine POC Creatinine 2.7 H Glucose Uric Acid Calcium POC WB Ioniz Calcium 1.37 H Direct Bilirubin GGT Alkaline Phosphatase Total Protein Albumin Albumin/Globulin Ratio Procalcitonin 09/28/22 09/28/22 09/28/22 15:25 15:25 15:25 WBC 21.0 H RBC 3.36 L Hgb 10.1 L Hct 32.3 L POC Hct MCV MCHC RDW 15.5 H Immature Gran % (Auto) 1.0 H Neut % (Auto) 86.8 H Lymph % (Auto) 5.8 L Lymph # (Auto) 1.21 L Cochran # (Auto) 1.28 H Immature Gran # 0.22 H Absolute Neutrophils 18.25 H POC VBG pCO2 at Temp POC VBG pO2 POC VBG HCO3 POC VBG Total CO2 POC Venous O2 Sat POC VBG Base Excess POC Sodium POC Potassium Potassium POC Chloride Chloride Carbon Dioxide POC Total CO2 Anion Gap POC BUN BUN Creatinine POC Creatinine Glucose Uric Acid Calcium POC WB Ioniz Calcium Direct Bilirubin GGT Alkaline Phosphatase 281 H Total Protein Albumin 3.0 L Albumin/Globulin Ratio Procalcitonin 0.99 H Meds: Medications Acetaminophen (Acetaminophen 325 Mg Tablet) 650 mg PO Q6HP PRN; Protocol PRN Reason: Per Pain Protocol/Fever > 101 Last Admin: 09/29/22 16:06 Dose: 650 mg Hydrocodone Bitart/Acetaminophen (Hydrocodone/Apap 5/325mg Tablet) 1 tab PO Q4HP PRN; Protocol PRN Reason: Per Pain Protocol Last Admin: 09/30/22 08:29 Dose: 1 tab Albuterol Sulfate (Albuterol Sulfate 2.5 Mg/3 Ml Nebulizer) 2.5 mg INH Q4HP PRN PRN Reason: shortness of breath or wheezing [facility] ([facility] 12.5 Mg [facility]t) [facility] Last Admin: 09/30/22 08:28 Dose: 25 mg Cetirizine HCl (Cetirizine 10 Mg Tablet) 10 mg PO HS [facility] Last Admin: 09/29/22 20:09 Dose: 10 mg Docusate Sodium (Docusate Sodium 100 Mg Capsule) 100 mg PO BID [facility] Last Admin: 09/30/22 08:28 Dose: 100 mg Famotidine (Famotidine 20 Mg Tablet) 20 mg PO BID [facility] Last Admin: 09/30/22 08:28 Dose: 20 mg Ferrous Gluconate (Ferrous Gluconate 324 Mg Tablet) 324 mg PO DAILY [facility] Last Admin: 09/30/22 08:28 Dose: 324 mg Folic Acid (Folic Acid 1 Mg Tablet) 1 mg PO DAILY [facility] Last Admin: 09/30/22 08:28 Dose: 1 mg Heparin Sodium (Porcine) (Heparin 5,000 Unit/Ml Vial) 5,000 unit SQ Q12 [facility] Last Admin: 09/30/22 08:28 Dose: 5,000 unit Hydromorphone HCl (Hydromorphone 0.5 Mg/0.5 Ml Syringe) 0.5 mg IV Q2HP PRN; Protocol PRN Reason: Per Pain Protocol Last Admin: 09/30/22 04:11 Dose: 0.5 mg Sodium Chloride (Sodium Chloride 0.9%) 1,000 mls @ 75 mls/hr IV .[id number] [facility] Last Admin: 09/30/22 02:05 Dose: 75 mls/hr Lactulose (Lactulose 20 Gm/30 Ml Oral.Julia) 10 gm PO DAILYP PRN PRN Reason: Constipation Ondansetron HCl (Ondansetron 4 Mg/2 Ml Vial) 4 mg IV Q4HP PRN; Protocol PRN Reason: Nausea And Vomiting Senna (Sennosides 1 Tablet) 2 tab PO HSP PRN PRN Reason: Constipation Simvastatin (Simvastatin 40 Mg Tablet) 20 mg PO HS [facility] Last Admin: 09/29/22 20:09 Dose: 20 mg Sodium Chloride (0.9 % Sodium Chloride 10 Ml Syringe) 10 ml IV Q8 [facility] Last Admin: 09/30/22 04:50 Dose: Not Given Tiotropium [place] (Tiotropium [place] 18 Mcg Inhalant) 18 mcg INH DAILY [facility] Vancomycin HCl (Vancomycin Per Pharmacy) 1 order IV UD [facility]; Protocol A/P Narrative A/P Narrative: Assessment: 87 year old female with multiple comorbidities per below admitted for severe sepsis secondary to an abscess complicated by acute on chronic kidney disease injury, intractable nausea and vomiting. The patient is hemodynamically stable and lactic acid was normal. 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 -Discontinue IV fluid. -Follow blood cultures x2. -MRI left elbow. -Follow CBC w/ diff and IPP, monitor potassium. -Analgesics as needed. -Antiemetic as needed. -Dr. Ortiz consulted for wound cares. -Resume home albuterol, Coreg, cetirizine, Pepcid, simvastatin, Spiriva. -Holding home losartan, furosemide, spironolactone. -Regular diet. -PT consult. -DVT prophylaxis: Heparin SQ. -Disposition: Inpatient MedSurg status. Time Spent With Patient Time: Total time spent is greater than 50% in coordination of care (as documented) at patient's floor/unit and/or counseling patient: QUALITY VTE Deep Vein Thrombosis/Pulmonary Embolism Present on Admission: No
[2022-09-30 10:30] LABS: Vancomycin,Random 11.1 ug/mL
[2022-09-30] MEDS: TIOTROPIUM BROMIDE 18 MCG INHALANT INH SCH (11:40)
[2022-09-30] MEDS: VANCOMYCIN 500 MG in 0.9 % SODIUM CHLORIDE 100 ML IV SCH (12:37)
--- NOTE | 2022-09-30 13:47 | General Surgery Consult Note ---
HPI Date of Consult Consult Date: 09/30/22 Requesting physician: Jason Murguia Primary Care Provider: NIKOLAY Randolph Consult Narrative cc:: Patient seen in ICU 120/C along with Tessa SHEIKH and Mirtha Ayala RNzyglo technician Manager. Subsequently spoke with family / friend and CG. Reviewed wound management with Dr. Murguia. Hospitalist Physician. CC: Jason Murguia MD Review of Systems All systems: reviewed and no additional remarkable complaints except as stated Integumentary Additional comments: FAILED out patient and ER treatment. Abscesses LEFT medial elbow and wrist (volar aspect) S/P I and D in ER. PO antibiotics Doxycycline and Bactrim. 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) Erythematous rash (Chronic) Hip pain (Chronic) Skin tear (Chronic) Right shoulder pain (Chronic) Hearing loss (Chronic) Low back pain (Chronic) Presbyopia (Chronic) 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) Peripheral retinal degeneration (Chronic) Regular astigmatism (Chronic) Hypermetropia (Chronic) After cataract not obscuring vision (Chronic) Arcus senilis (Chronic) Onychogryposis (Chronic) Vitamin D deficiency (Chronic) Xeroderma (Chronic) Chronic nonmalignant pain (Chronic) Emphysema lung (Chronic) GERD (gastroesophageal reflux disease) (Chronic) Stage 1 chronic kidney disease due to benign hypertension (Chronic) Scoliosis of lumbar spine (Chronic) Contusion of rib on left side (Chronic) Right hip pain (Chronic) Bilateral foot pain (Chronic) Serum creatinine raised (Chronic) Osteoarthritis of right knee (Chronic) Tinea corporis (Chronic) Right knee pain (Chronic) Abscess of Bartholin's gland (Chronic) Ingrowing toenail (Chronic) Paronychia of toe of left foot (Chronic) Neurodermatitis (Chronic) Candidiasis of vagina (Chronic) Candidal intertrigo (Chronic) Right inguinal pain (Chronic) Esophageal dysphagia (Chronic) Abnormal urine odor (Chronic) Chronic right-sided low back pain with sciatica (Chronic) Lumbar radiculopathy (Chronic) Facet arthropathy (Chronic) Spondylosis (Chronic) Greater trochanteric bursitis of right hip (Chronic) History of tuberculosis (Chronic) Pancreatitis (Chronic) Anxiety (Chronic) Depression (Chronic) Hypertensive urgency (Chronic) MARIBEL positive (Chronic) Acquired ichthyosis (Chronic) Age-related osteoporosis without current pathological fracture (Chronic) Cellulitis (Chronic) Chest pain (Chronic) GERD without esophagitis (Chronic) Hypertensive nephropathy (Chronic) Pain, joint, shoulder (Chronic) Nicotine dependence (Chronic) Other chronic pain (Chronic) Other megaloblastic anemias, 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) Other secondary cataract, unspecified eye (Chronic) Polyarthropathy of ankle and foot (Acute) CKD (chronic kidney disease) stage 4, GFR 15-29 ml/min (Chronic) Eosinophilia (Acute) Metabolic acidosis with normal anion gap and failure of bicarbonate regeneration (Acute) H/O right nephrectomy (Chronic) HTN (hypertension), benign (Acute) CKD (chronic kidney disease) stage 3, GFR 30-59 ml/min (Acute) Pneumonia (Acute) Acute exacerbation of chronic obstructive airways disease (Acute) Cellulitis (Acute) Lymphangitis (Acute) Abscess of left elbow (Acute) Abscess of skin of left wrist (Acute) Cellulitis and abscess of other specified site (Acute) Nausea & vomiting (Acute) Acute kidney failure (Acute) Medical History Abnormal urine odor Abscess of Bartholin's gland Acquired ichthyosis After cataract not obscuring vision Age-related osteoporosis without current pathological fracture MARIBEL positive Anxiety Arcus senilis Bilateral foot pain Candidal intertrigo Candidiasis of vagina Cellulitis Left Forearm and Right Forearm Chest pain Choledocholithiasis with acute cholecystitis with obstruction Chronic ischemic heart disease Chronic kidney disease Chronic nonmalignant pain Chronic right-sided low back pain with sciatica Chronic sciatica Combined B12 and folate deficiency anemia Contusion of rib on left side COPD (chronic obstructive pulmonary disease) Depression Emphysema lung Erythematous rash Esophageal dysphagia Facet arthropathy GERD without esophagitis Globus sensation Greater trochanteric bursitis of right hip Hearing loss Hip pain History of tuberculosis Hypermetropia Hypertensive disorder Hypertensive nephropathy Infection of skin Ingrowing toenail Lichen planus Low back pain Lumbar radiculopathy Metabolic acidosis, increased anion gap Neurodermatitis Nicotine dependence Nonexudative age-related macular degeneration Onychogryposis Osteoarthritis of right knee Other chronic pain Other megaloblastic anemias, not elsewhere classified Other secondary cataract, unspecified eye Pain, joint, shoulder Right Pancreatitis Paronychia of toe of left foot Peripheral retinal degeneration Presbyopia Regular astigmatism Right hip pain Right inguinal pain Right knee pain Right shoulder pain Scoliosis of lumbar spine Septic shock Serum creatinine raised Skin tear Smoker Spondylosis Stage 1 chronic kidney disease due to benign hypertension Tinea corporis Unstable angina Varicose veins of lower extremity Vitamin D deficiency Xeroderma Senile Surgical History History of surgery Broke hip and pelvis. No pertinent past surgical history Family History Brother Hypertension Diabetes mellitus Heart disease Stroke Cancer Alcohol abuse Grandfather Psoriasis Father , 60 Emphysema lung Mother , 60 Diabetes mellitus Hypertension Heart disease Other Tuberculosis Social History marital status: single education level: high school smoking status: Never smoker alcohol intake frequency: former alcohol drinker MEDS/ALLERGIES Home Medications and Allergies Home Medications Medication Instructions Recorded Confirmed Type Spiriva 1 tab PO DAILY 01/13/19 09/28/22 History ferrous gluconate 324 mg (37.5 mg 324 mg PO DAILY 01/13/19 09/28/22 History iron) tablet folic acid 1 mg tablet 1 mg PO DAILY 01/13/19 09/28/22 History cetirizine 10 mg tablet (All Day 10 mg PO HS 02/15/21 09/28/22 History Allergy (cetirizine)) ergocalciferol (vitamin D2) 1,250 1,250 mcg PO QWEEK 02/15/21 09/28/22 History mcg (50,000 unit) capsule famotidine 40 mg tablet 20 mg PO BID 02/15/21 09/28/22 History simvastatin 40 mg tablet 20 mg PO HS 04/19/21 09/28/22 History albuterol sulfate 2.5 mg/3 mL 2.5 mg (3 mL) inhalation Q4H PRN 08/17/22 09/28/22 Rx (0.083 %) solution for nebulization shortness of breath or wheezing #75 mL furosemide 20 mg tablet 20 mg PO QAM #5 tabs 08/17/22 09/28/22 Rx losartan 100 mg tablet 100 mg PO QDAY #7 tabs 08/17/22 09/28/22 Rx sulfamethoxazole 800 1 tab PO BID 14 days #28 tabs 09/23/22 09/28/22 Rx mg-trimethoprim 160 mg tablet (Bactrim DS) calcitonin (salmon) 200 1 spray intranasal (ALT) QDAY 09/28/22 09/28/22 History unit/actuation nasal spray calcium carbonate 500 mg calcium 500 mg PO PRN PRN Acid Reflux 09/28/22 09/28/22 History (1,250 mg) chewable tablet carvedilol 25 mg tablet 25 mg PO BID 09/28/22 09/28/22 History potassium chloride 10 meq PO DAILY 09/28/22 09/28/22 History spironolactone 25 mg tablet 25 mg PO DAILY 09/28/22 09/28/22 History vitamin A-vitamin C-vit E-min 1 tab PO DAILY 09/28/22 09/28/22 History tablet Allergies Allergy/AdvReac Type Severity Reaction Status Date / Time amitriptyline [AMITRIPTYLINE] Allergy Intermediate Hives Verified 09/28/22 15:20 Physical Examination Vital Signs Vital signs: Temp Pulse Resp BP Pulse Ox O2 Del Method 98.9 F 66 14 144/73 96 Room Air 09/30/22 12:00 09/30/22 08:01 09/30/22 12:00 09/30/22 12:00 09/30/22 08:01 09/30/22 12:00 General physical appearance General physical exam: no distress, cachectic and chronically ill Eyes Eye exam: PERRL and normal ocular movement ENT ENT exam: normal pinna, normal nares, normal mucosa and no congestion Head Head exam IM: Present atraumatic and normocephalic Neck Neck exam: no masses, trachea midline and no venous distension Cardiovascular Cardiovascular exam IM: Present normal rate and rhythm Respiratory Respiratory exam: normal respiratory effort and clear to auscultation Abdomen Abdomen: Present soft, non tender and bowel sounds Integumentary Integumentary: Present other (Stage 2 Open wounds LEFT medial elbow and anterior wrist region (2-3 CM) Granuating base. NO signs of acute infection or inflammation. Periwound skin and subcutaneous textrue is at baseline. ) Neurologic Neurologic: Present normal coordination, normal sensation and other (NON focal and NON lateralizing skin examination. Stiffness of joints due to arthritis of elbow and wrist. ) Musculoskeletal Musculoskeletal: Present other (Symmetrial arthritis extremities. CHRONIC.) Psychiatric Psychiatric: Present oriented to time, oriented to person, oriented to place and speech is normal Results Labs 09/30/22 05:26 09/30/22 05:26 Labs: Abnormal lab results 09/30/22 09/30/22 Range/Units 05:26 05:26 WBC 11.9 H (4.5-11.0) K/mcL RBC 2.98 L (3.59-5.38) M/mcL Hgb 8.8 L (11.2-15.7) g/dL Hct 29.5 L (34.1-44.9) % MCHC 29.8 L (31.0-36.0) g/dL RDW 15.1 H (11.5-14.5) % Immature Gran % (Auto) 0.6 H (0.0-0.5) % Neut % (Auto) 79.6 H (38.0-78.0) % Lymph % (Auto) 8.7 L (15.5-49.0) % Lymph # (Auto) 1.04 L (1.50-4.80) K/mcL [place] # (Auto) 0.94 H (0.10-0.90) K/mcL Immature Gran # 0.07 H (0.00-0.05) K/mcl Absolute Neutrophils 9.49 H (1.80-8.00) K/mcL Potassium 5.5 H (3.3-5.1) mmol/L Chloride 118 H (96-108) mmol/L Carbon Dioxide 17 L (22-30) mmol/L Anion Gap 7.0 L (8.0-16.0) BUN 47 H (8-23) mg/dL Glucose 63 L (70-105) mg/dL Direct Bilirubin 0.3 H (<0.3) mg/dL GGT 228 H (5-36) U/L Alkaline Phosphatase 270 H (39-117) U/L Total Protein 5.7 L (5.9-8.4) gm/dL Albumin 2.4 L (3.2-5.2) gm/dL Albumin/Globulin Ratio 0.7 L (1.0-2.3) Diabetes panel 09/30/22 Range/Units 05:26 Sodium 142 (133-145) mmol/L Potassium 5.5 H (3.3-5.1) mmol/L Chloride 118 H (96-108) mmol/L Carbon Dioxide 17 L (22-30) mmol/L BUN 47 H (8-23) mg/dL Creatinine 1.0 (0.6-1.1) mg/dL Glucose 63 L (70-105) mg/dL Calcium 8.7 (8.6-10.4) mg/dL AST 20 (<32) U/L ALT 16 (<40) U/L Alkaline Phosphatase 270 H (39-117) U/L Total Protein 5.7 L (5.9-8.4) gm/dL Albumin 2.4 L (3.2-5.2) gm/dL Triglycerides 90 (<150) mg/dL Calcium panel 09/30/22 Range/Units 05:26 Calcium 8.7 (8.6-10.4) mg/dL Phosphorus 2.9 (2.5-4.5) mg/dL Albumin 2.4 L (3.2-5.2) gm/dL Pituitary panel 09/30/22 Range/Units 05:26 Sodium 142 (133-145) mmol/L Potassium 5.5 H (3.3-5.1) mmol/L Chloride 118 H (96-108) mmol/L Carbon Dioxide 17 L (22-30) mmol/L BUN 47 H (8-23) mg/dL Creatinine 1.0 (0.6-1.1) mg/dL Glucose 63 L (70-105) mg/dL Calcium 8.7 (8.6-10.4) mg/dL Adrenal panel 09/30/22 Range/Units 05:26 Sodium 142 (133-145) mmol/L Potassium 5.5 H (3.3-5.1) mmol/L Chloride 118 H (96-108) mmol/L Carbon Dioxide 17 L (22-30) mmol/L BUN 47 H (8-23) mg/dL Creatinine 1.0 (0.6-1.1) mg/dL Glucose 63 L (70-105) mg/dL Calcium 8.7 (8.6-10.4) mg/dL Total Bilirubin 0.5 (0.1-1.0) mg/dL AST 20 (<32) U/L ALT 16 (<40) U/L Alkaline Phosphatase 270 H (39-117) U/L Total Protein 5.7 L (5.9-8.4) gm/dL Albumin 2.4 L (3.2-5.2) gm/dL All other labs normal. A/P Narrative A/P Narrative: Assessment. Acute exacerbation of CKD. (Improving) CSSSI cutaneous abscesses LEFT elbow / wrist S/P I and D in ER. (Failed Out Patient treatment. ACUTE. SEPSIS improving Most likely of cutaneous origin (IMPROVING) Multiple comorbidities: HTN, COPD, GERD, CKD (Solitary Kidney) Plan of Treatment: Plan: Local wound Care. Clean with Hibiclens Bacitracin / gauze Kerlix BID Hold off on MRI elbow at this time. Monitor progress. Will be following patient during hospitalization. Time Spent With Patient Time: Total time spent is greater than 50% in coordination of care (as documented) at patient's floor/unit and/or counseling patient: Initial: Total time with patient: 40 - 54 minutes
[2022-09-30] MEDS: CETIRIZINE 10 MG TABLET PO SCH (21:25)
[2022-09-30] MEDS: SIMVASTATIN 40 MG TABLET PO SCH (21:26)
[2022-10-01] MEDS: 0.9 % SODIUM CHLORIDE 10 ML SYRINGE IV SCH ×3 (04:57→21:36)
[2022-10-01 06:40] LABS: Basophils # (Auto) 0.04 K/mcL (0.00-0.30); Basophils % (Auto) 0.4 % (0.0-2.0); Eosinophils # (Auto) 0.42 K/mcL (0.00-0.70); Eosinophils % (Auto) 4.2 % (0.0-7.0); Hematocrit 30.3 % (34.1-44.9); Hemoglobin 9.4 g/dL (11.2-15.7); Lymphocytes # (Auto) 1.14 K/mcL (1.50-4.80); Lymphocytes % (Auto) 11.4 % (15.5-49.0); Mean Cell Volume 95.9 fL (80.0-100.0); Mean Platelet Volume 10.4 fL (8.8-12.5); Monocytes # (Auto) 0.79 K/mcL (0.10-0.90); Monocytes % (Auto) 7.9 % (1.0-12.0); Neutrophils % (Auto) 75.4 % (38.0-78.0); Platelet Count 261 K/mcL (140-440); RBC 3.16 M/mcL (3.59-5.38); Red Cell Distribution Width 14.1 % (11.5-14.5)
[2022-10-01 07:03] LABS: ALT/SGPT 18 U/L (<40); AST/SGOT 25 U/L (<32); Albumin 2.7 gm/dL (3.2-5.2); Albumin/Globulin Ratio 0.9 (1.0-2.3); Alkaline Phosphatase 285 U/L (39-117); Bilirubin,Direct 0.2 mg/dL (<0.3); Bilirubin,Total 0.5 mg/dL (0.1-1.0); Blood Urea Nitrogen 26 mg/dL (8-23); Calcium 8.8 mg/dL (8.6-10.4); Carbon Dioxide 18 mmol/L (22-30); Chloride 109 mmol/L (96-108); Ferritin 688.4 ng/mL (30.0-400.0); Glomerular Filtration Rate 79; Glucose 77 mg/dL (70-105); Lactate Dehydrogenase 199 U/L (135-225); Phosphorous 2.6 mg/dL (2.5-4.5); Triglycerides 83 mg/dL (<150); Uric Acid 6.9 mg/dL (2.5-8.0)
[2022-10-01] MEDS: HEPARIN 5,000 UNIT/ML VIAL SQ SCH ×2 (08:36→21:35)
[2022-10-01] MEDS: DOCUSATE SODIUM 100 MG CAPSULE PO SCH ×2 (08:37→21:31)
[2022-10-01] MEDS: CARVEDILOL 12.5 MG TABLET PO SCH ×2 (08:37→22:37)
[2022-10-01] MEDS: FAMOTIDINE 20 MG TABLET PO SCH ×2 (08:37→21:31)
[2022-10-01] MEDS: FOLIC ACID 1 MG TABLET PO SCH (08:37)
[2022-10-01] MEDS: FERROUS GLUCONATE 324 MG TABLET PO SCH (08:37)
[2022-10-01] MEDS: TIOTROPIUM BROMIDE 18 MCG INHALANT INH SCH (11:03)
[2022-10-01] MEDS: VANCOMYCIN 500 MG in 0.9 % SODIUM CHLORIDE 100 ML IV SCH (13:28)
--- NOTE | 2022-10-01 14:27 | Internal Med Progress Note ---
SUBJECTIVE Subjective Patient information: Note initiated : 10/01/22 at 2:25 pm Service Date, if different from initiated Date: [] Patient: Anahi Lebron 87 y/o F admitted on 09/28/22 for WEAKNESS. Chief Complaint: [] Interval history: Ms. 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 The patient was prescribed doxycycline and discharged to home. She later developed abscesses on her left wrist and left elbow. The patient presented once again to the emergency department on 09/23/2022 and the abscesses were lanced and cultured, the patient was prescribed Bactrim and discharged to home. The cultures did grow MRSA that was sensitive to both doxycycline and Bactrim. The patient developed nausea and vomiting on about 09/25/2022 then became progressively weaker. The patient returned to the ED on 09/28/2022, the day of admission and was found to be septic with an acute on chronic kidney disease injury, mild hyperkalemia in addition generalized weakness. The patient has not been able to take her oral antibiotics due to nausea and vomiting. Hospital medicine was asked to admit the patient for severe sepsis, acute on chronic kidney disease injury and intractable nausea and vomiting. 09/29 Patient was afebrile overnight, vitals stable. Leukocytosis improving, renal function improving. The patient has an unexpected amount of pain at her left elbow so ordered an MRI left elbow without contrast as the patient also has renal dysfunction. Continue vancomycin IV per pharmacy dosing. 09/30 Vitals stable overnight, no significant nighttime issues. Leukocytosis improving, hemoglobin has trended down to 8.8. Creatinine normal now. IV fluid discontinued. The patient continues to endorse left elbow tenderness, MRI left elbow ordered. Consulted Dr. Ortiz to evaluate the patient's left upper extremity wounds. CT chest did not show any pulmonary nodules or masses that were suspected on chest x-ray. 10/01 Vital stable overnight, afebrile. Leukocytosis has resolved. Canceled MRI elbow, the patient is moving the elbow now without pain therefore osteomyelitis is very unlikely. The patient continues to be confused and intermittently agitated. Discussed with family, possible discharge with family 24-hour supervision tomorrow on oral antibiotics with follow-up in the wound care clinic. Physical exam Head: Atraumatic, normal inspection. Eyes: normal appearance, no scleral icterus. Neck: full ROM Respiratory: no respiratory distress. Cardiovascular: normal rate and rhythm, S1, S2. GI/Abdominal: soft, nontender, no guarding. Extremities: Severe tenderness to palpation at left elbow. Neurological: CN II-XII intact, intact motor, intact sensation. Psychiatric: Impaired cognition Skin: Left upper extremity abscesses at left elbow and left wrist packed with gauze. Constitutional Vitals: Vital Signs Temp Pulse Resp BP Pulse Ox O2 Del Method 97.7 F 79 12 121/78 99 Room Air 10/01/22 07:00 10/01/22 07:00 10/01/22 07:00 10/01/22 07:00 10/01/22 07:00 10/01/22 07:00 Period Temp Pulse Resp BP Sys/Rogers Pulse Ox O2 Del Method O2 Flow Rate Last 24 Hr 97.4 F-98.3 F 64-79 12-20 120-172/62-78 95-99 Room Air-Room Air Intake and Output 10/01/22 10/01/22 10/01/22 03:59 11:59 19:59 Intake Total 210 Output Total 103 50 Balance 107 -50 Weight 54.295 kg Intake & Output: Intake & Output 10/01/22 10/01/22 10/01/22 03:59 11:59 19:59 Intake Total 210 Output Total 103 50 Balance 107 -50 Weight 54.295 kg Intake: Nourishment/Supplement quantity 20 (ml) Oral 190 Output: Void Amount 100 50 # of times incontinent of urine 3 Other: Meal Nourishment/Supplement Breakfast Percent of Meal Consumed 50% Feeding Ability Assist with Tray Set Up Nourishment/Supplement name Ensure Urine Appearance Clear Clear Urine Color Yellow Yellow Urine Odor Normal # Voids 3 1 OBJ DATA Labs 10/01/22 05:45 10/01/22 05:45 Labs: Abnormal Lab Results 10/01/22 10/01/22 10/01/22 05:45 05:45 05:45 WBC RBC 3.16 L Hgb 9.4 L Hct 30.3 L POC Hct MCV MCHC RDW Immature Gran % (Auto) 0.7 H Neut % (Auto) Lymph % (Auto) 11.4 L Lymph # (Auto) 1.14 L [place] # (Auto) Immature Gran # 0.07 H Absolute Neutrophils POC VBG pCO2 at Temp POC VBG pO2 POC VBG HCO3 POC VBG Total CO2 POC Venous O2 Sat POC VBG Base Excess POC Sodium POC Potassium Potassium POC Chloride Chloride 109 H Carbon Dioxide 18 L POC Total CO2 Anion Gap POC BUN BUN 26 H Creatinine POC Creatinine Glucose Uric Acid Calcium POC WB Ioniz Calcium TIBC 94 L Unsat Iron Binding 57 L Ferritin 688.4 H Direct Bilirubin GGT 233 H Alkaline Phosphatase 285 H Total Protein 5.7 L Albumin 2.7 L Albumin/Globulin Ratio 0.9 L Procalcitonin 09/30/22 09/30/22 09/29/22 05:26 05:26 05:18 WBC 11.9 H RBC 2.98 L Hgb 8.8 L Hct 29.5 L POC Hct MCV MCHC 29.8 L RDW 15.1 H Immature Gran % (Auto) 0.6 H Neut % (Auto) 79.6 H Lymph % (Auto) 8.7 L Lymph # (Auto) 1.04 L [place] # (Auto) 0.94 H Immature Gran # 0.07 H Absolute Neutrophils 9.49 H POC VBG pCO2 at Temp POC VBG pO2 POC VBG HCO3 POC VBG Total CO2 POC Venous O2 Sat POC VBG Base Excess POC Sodium POC Potassium Potassium 5.5 H 5.2 H POC Chloride Chloride 118 H 119 H Carbon Dioxide 17 L 15 L POC Total CO2 Anion Gap 7.0 L POC BUN BUN 47 H 92 H Creatinine 1.7 H POC Creatinine Glucose 63 L 67 L Uric Acid 8.5 H Calcium 8.3 L POC WB Ioniz Calcium TIBC Unsat Iron Binding Ferritin Direct Bilirubin 0.3 H GGT 228 H 201 H Alkaline Phosphatase 270 H 231 H Total Protein 5.7 L 5.5 L Albumin 2.4 L 2.4 L Albumin/Globulin Ratio 0.7 L 0.8 L Procalcitonin 09/29/22 09/28/22 09/28/22 05:18 15:45 15:29 WBC 16.1 H RBC 3.05 L Hgb 9.2 L Hct 32.7 L POC Hct 31.0 L MCV 107.2 H MCHC 28.1 L RDW 15.8 H Immature Gran % (Auto) 0.7 H Neut % (Auto) 82.7 H Lymph % (Auto) 6.4 L Lymph # (Auto) 1.03 L [place] # (Auto) 1.32 H Immature Gran # 0.11 H Absolute Neutrophils 13.35 H POC VBG pCO2 at Temp 35.9 L POC VBG pO2 73 H POC VBG HCO3 18.6 L POC VBG Total CO2 20.0 L POC Venous O2 Sat 93.0 H POC VBG Base Excess -7.0 L POC Sodium 146 H POC Potassium 5.2 H Potassium POC Chloride 119 H Chloride Carbon Dioxide POC Total CO2 19.0 L Anion Gap POC BUN 138 H* BUN Creatinine POC Creatinine 2.7 H Glucose Uric Acid Calcium POC WB Ioniz Calcium 1.37 H TIBC Unsat Iron Binding Ferritin Direct Bilirubin GGT Alkaline Phosphatase Total Protein Albumin Albumin/Globulin Ratio Procalcitonin 09/28/22 09/28/22 09/28/22 15:25 15:25 15:25 WBC 21.0 H RBC 3.36 L Hgb 10.1 L Hct 32.3 L POC Hct MCV MCHC RDW 15.5 H Immature Gran % (Auto) 1.0 H Neut % (Auto) 86.8 H Lymph % (Auto) 5.8 L Lymph # (Auto) 1.21 L [place] # (Auto) 1.28 H Immature Gran # 0.22 H Absolute Neutrophils 18.25 H POC VBG pCO2 at Temp POC VBG pO2 POC VBG HCO3 POC VBG Total CO2 POC Venous O2 Sat POC VBG Base Excess POC Sodium POC Potassium Potassium POC Chloride Chloride Carbon Dioxide POC Total CO2 Anion Gap POC BUN BUN Creatinine POC Creatinine Glucose Uric Acid Calcium POC WB Ioniz Calcium TIBC Unsat Iron Binding Ferritin Direct Bilirubin GGT Alkaline Phosphatase 281 H Total Protein Albumin 3.0 L Albumin/Globulin Ratio Procalcitonin 0.99 H Meds: Medications Acetaminophen (Acetaminophen 325 Mg Tablet) 650 mg PO Q6HP PRN; Protocol PRN Reason: Per Pain Protocol/Fever > 101 Last Admin: 09/29/22 16:06 Dose: 650 mg Hydrocodone Bitart/Acetaminophen (Hydrocodone/Apap 5/325mg Tablet) 1 tab PO Q4HP PRN; Protocol PRN Reason: Per Pain Protocol Last Admin: 09/30/22 16:15 Dose: 1 tab Albuterol Sulfate (Albuterol Sulfate 2.5 Mg/3 Ml Nebulizer) 2.5 mg INH Q4HP PRN PRN Reason: shortness of breath or wheezing Carvedilol (Carvedilol 12.5 Mg Tablet) 25 mg PO BIDCC FOR[facility], [facility] Last Admin: 10/01/22 08:37 Dose: 25 mg Cetirizine HCl (Cetirizine 10 Mg Tablet) 10 mg PO HS [facility] Last Admin: 09/30/22 21:25 Dose: 10 mg Docusate Sodium (Docusate Sodium 100 Mg Capsule) 100 mg PO BID [facility] Last Admin: 10/01/22 08:37 Dose: 100 mg Famotidine (Famotidine 20 Mg Tablet) 20 mg PO BID [facility] Last Admin: 10/01/22 08:37 Dose: 20 mg Ferrous Gluconate (Ferrous Gluconate 324 Mg Tablet) 324 mg PO DAILY [facility] Last Admin: 10/01/22 08:37 Dose: 324 mg Folic Acid (Folic Acid 1 Mg Tablet) 1 mg PO DAILY [facility] Last Admin: 10/01/22 08:37 Dose: 1 mg Heparin Sodium (Porcine) (Heparin 5,000 Unit/Ml Vial) 5,000 unit SQ Q12 [facility] Last Admin: 10/01/22 08:36 Dose: 5,000 unit Hydromorphone HCl (Hydromorphone 0.5 Mg/0.5 Ml Syringe) 0.5 mg IV Q2HP PRN; Protocol PRN Reason: Per Pain Protocol Last Admin: 09/30/22 04:11 Dose: 0.5 mg Vancomycin HCl 500 mg/ Sodium (Chloride) 100 mls @ 100 mls/hr IV Q24H [facility] Last Admin: 10/01/22 13:28 Dose: 100 mls/hr Lactulose (Lactulose 20 Gm/30 Ml Oral.Julia) 10 gm PO DAILYP PRN PRN Reason: Constipation Ondansetron HCl (Ondansetron 4 Mg/2 Ml Vial) 4 mg IV Q4HP PRN; Protocol PRN Reason: Nausea And Vomiting Senna (Sennosides 1 Tablet) 2 tab PO HSP PRN PRN Reason: Constipation Simvastatin (Simvastatin 40 Mg Tablet) 20 mg PO HS [facility] Last Admin: 09/30/22 21:26 Dose: 20 mg Sodium Chloride (0.9 % Sodium Chloride 10 Ml Syringe) 10 ml IV Q8 [facility] Last Admin: 10/01/22 04:57 Dose: 10 ml Tiotropium [place] (Tiotropium [place] 18 Mcg Inhalant) 18 mcg INH DAILY [facility] Last Admin: 10/01/22 11:03 Dose: Not Given Vancomycin HCl (Vancomycin Per Pharmacy) 1 order IV UD [facility], [facility]; Protocol A/P Narrative A/P Narrative: Assessment: 87 year old female with multiple comorbidities per below admitted for severe sepsis secondary to an abscess complicated by acute on chronic kidney disease injury, intractable nausea and vomiting. The patient is hemodynamically stable and lactic acid was normal. 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 -Discontinue IV fluid. -Follow blood cultures x2. -Follow CBC w/ diff and IPP, monitor potassium. -Analgesics as needed. -Antiemetic as needed. -Dr. Ortiz consulted for wound cares. -Resume home albuterol, Coreg, cetirizine, Pepcid, simvastatin, Spiriva. -Holding home losartan, furosemide, spironolactone. -Regular diet. -PT consult. -DVT prophylaxis: Heparin SQ. -Disposition: Inpatient MedSurg status, likely discharge home tomorrow with family 24-hour supervision. Follow-up with wound care clinic. Plan of Treatment: Plan: Local wound Care. Clean with Hibiclens Bacitracin / gauze Kerlix BID Hold off on MRI elbow at this time. Monitor progress. Will be following patient during hospitalization. Time Spent With Patient Time: Total time spent is greater than 50% in coordination of care (as documented) at patient's floor/unit and/or counseling patient: QUALITY VTE Deep Vein Thrombosis/Pulmonary Embolism Present on Admission: No
[2022-10-01] MEDS: CETIRIZINE 10 MG TABLET PO SCH (21:31)
[2022-10-01] MEDS: SIMVASTATIN 40 MG TABLET PO SCH (21:35)
[2022-10-02] MEDS: 0.9 % SODIUM CHLORIDE 10 ML SYRINGE IV SCH ×2 (05:00→06:17)
[2022-10-02] MEDS: HEPARIN 5,000 UNIT/ML VIAL SQ SCH (07:50)
[2022-10-02] MEDS: FOLIC ACID 1 MG TABLET PO SCH (07:50)
[2022-10-02] MEDS: DOCUSATE SODIUM 100 MG CAPSULE PO SCH (07:50)
[2022-10-02] MEDS: FERROUS GLUCONATE 324 MG TABLET PO SCH (07:50)
[2022-10-02] MEDS: CARVEDILOL 12.5 MG TABLET PO SCH (07:50)
[2022-10-02] MEDS: FAMOTIDINE 20 MG TABLET PO SCH (07:50)
[2022-10-02] MEDS: TIOTROPIUM BROMIDE 18 MCG INHALANT INH SCH (07:51)
--- NOTE | 2022-10-02 08:50 | Internal Med Progress Note ---
SUBJECTIVE Subjective Patient information: Note initiated : 10/02/22 at 8:48 am Service Date, if different from initiated Date: [] Patient: Anahi Lebron 87 y/o F admitted on 09/28/22 for WEAKNESS. Chief Complaint: [] Interval history: Ms. 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 The patient was prescribed doxycycline and discharged to home. She later developed abscesses on her left wrist and left elbow. The patient presented once again to the emergency department on 09/23/2022 and the abscesses were lanced and cultured, the patient was prescribed Bactrim and discharged to home. The cultures did grow MRSA that was sensitive to both doxycycline and Bactrim. The patient developed nausea and vomiting on about 09/25/2022 then became progressively weaker. The patient returned to the ED on 09/28/2022, the day of admission and was found to be septic with an acute on chronic kidney disease injury, mild hyperkalemia in addition generalized weakness. The patient has not been able to take her oral antibiotics due to nausea and vomiting. Hospital medicine was asked to admit the patient for severe sepsis, acute on chronic kidney disease injury and intractable nausea and vomiting. 09/29 Patient was afebrile overnight, vitals stable. Leukocytosis improving, renal function improving. The patient has an unexpected amount of pain at her left elbow so ordered an MRI left elbow without contrast as the patient also has renal dysfunction. Continue vancomycin IV per pharmacy dosing. 09/30 Vitals stable overnight, no significant nighttime issues. Leukocytosis improving, hemoglobin has trended down to 8.8. Creatinine normal now. IV fluid discontinued. The patient continues to endorse left elbow tenderness, MRI left elbow ordered. Consulted Dr. Ortiz to evaluate the patient's left upper extremity wounds. CT chest did not show any pulmonary nodules or masses that were suspected on chest x-ray. 10/01 Vital stable overnight, afebrile. Leukocytosis has resolved. Canceled MRI elbow, the patient is moving the elbow now without pain therefore osteomyelitis is very unlikely. The patient continues to be confused and intermittently agitated. Discussed with family, possible discharge with family 24-hour supervision tomorrow on oral antibiotics with follow-up in the wound care clinic. 10/02 No significant events overnight. Patient was discharged to home with family in [place], that can provide 24/7 supervision until the patient is safe to live semi-independently again with the family Kathie in [facility]. Follow-up with primary care provider and also in the wound care clinic. The patient is discharged with doxycycline 100 mg twice daily for 5 more days. MRSA culture sensitivity was sensitive to tetracyclines. Physical exam Head: Atraumatic, normal inspection. Eyes: normal appearance, no scleral icterus. Neck: full ROM Respiratory: no respiratory distress. Cardiovascular: normal rate and rhythm, S1, S2. GI/Abdominal: soft, nontender, no guarding. Extremities: Severe tenderness to palpation at left elbow. Neurological: CN II-XII intact, intact motor, intact sensation. Psychiatric: Impaired cognition Skin: Left upper extremity abscesses at left elbow and left wrist packed with gauze. Constitutional Vitals: Vital Signs Temp Pulse Resp BP Pulse Ox O2 Del Method 97.6 F 63 18 149/75 98 Room Air 10/02/22 03:02 10/02/22 07:21 10/02/22 03:02 10/02/22 07:21 10/02/22 07:21 10/02/22 07:21 Period Temp Pulse Resp BP Sys/Rogers Pulse Ox O2 Del Method O2 Flow Rate Last 24 Hr 97.5 F-98.0 F 63-68 12-22 135-162/63-75 95-100 Room Air-Room Air Intake and Output 10/01/22 10/02/22 10/02/22 19:59 03:59 11:59 Intake Total 460 350 Output Total 75 476 151 Balance 385 -126 -151 Weight 54.431 kg Intake & Output: Intake & Output 10/01/22 10/02/22 10/02/22 19:59 03:59 11:59 Intake Total 460 350 Output Total 75 476 151 Balance 385 -126 -151 Weight 54.431 kg Intake: IV 100 Vancomycin 500 mg In Sodium 100 Chloride 0.9% 100 ml @ 100 mls/ hr IV Q24H [facility] Rx#:[id number] Oral 360 350 Output: Void Amount 75 475 150 # of times incontinent of urine 1 1 Other: Meal Lunch Percent of Meal Consumed 100% Urine Appearance Clear Clear Clear Urine Color Yellow Yellow Yellow Stool Size Small Stool Color Brown Stool Consistency Formed Paulette # Bowel Movements 1 OBJ DATA Labs 10/01/22 05:45 10/01/22 05:45 Labs: Abnormal Lab Results 10/01/22 10/01/22 10/01/22 05:45 05:45 05:45 WBC RBC 3.16 L Hgb 9.4 L Hct 30.3 L MCHC RDW Immature Gran % (Auto) 0.7 H Neut % (Auto) Lymph % (Auto) 11.4 L Lymph # (Auto) 1.14 L Bay # (Auto) Immature Gran # 0.07 H Absolute Neutrophils Potassium Chloride 109 H Carbon Dioxide 18 L Anion Gap BUN 26 H Glucose TIBC 94 L Unsat Iron Binding 57 L Ferritin 688.4 H Direct Bilirubin GGT 233 H Alkaline Phosphatase 285 H Total Protein 5.7 L Albumin 2.7 L Albumin/Globulin Ratio 0.9 L 09/30/22 09/30/22 05:26 05:26 WBC 11.9 H RBC 2.98 L Hgb 8.8 L Hct 29.5 L MCHC 29.8 L RDW 15.1 H Immature Gran % (Auto) 0.6 H Neut % (Auto) 79.6 H Lymph % (Auto) 8.7 L Lymph # (Auto) 1.04 L Bay # (Auto) 0.94 H Immature Gran # 0.07 H Absolute Neutrophils 9.49 H Potassium 5.5 H Chloride 118 H Carbon Dioxide 17 L Anion Gap 7.0 L BUN 47 H Glucose 63 L TIBC Unsat Iron Binding Ferritin Direct Bilirubin 0.3 H GGT 228 H Alkaline Phosphatase 270 H Total Protein 5.7 L Albumin 2.4 L Albumin/Globulin Ratio 0.7 L Meds: Medications Acetaminophen (Acetaminophen 325 Mg Tablet) 650 mg PO Q6HP PRN; Protocol PRN Reason: Per Pain Protocol/Fever > 101 Last Admin: 09/29/22 16:06 Dose: 650 mg Hydrocodone Bitart/Acetaminophen (Hydrocodone/Apap 5/325mg Tablet) 1 tab PO Q4HP PRN; Protocol PRN Reason: Per Pain Protocol Last Admin: 09/30/22 16:15 Dose: 1 tab Albuterol Sulfate (Albuterol Sulfate 2.5 Mg/3 Ml Nebulizer) 2.5 mg INH Q4HP PRN PRN Reason: shortness of breath or wheezing Carvedilol (Carvedilol 12.5 Mg Tablet) 25 mg PO BIDCC [facility] Last Admin: 10/02/22 07:50 Dose: 25 mg Cetirizine HCl (Cetirizine 10 Mg Tablet) 10 mg PO HS [facility] Last Admin: 10/01/22 21:31 Dose: 10 mg Docusate Sodium (Docusate Sodium 100 Mg Capsule) 100 mg PO BID [facility] Last Admin: 10/02/22 07:50 Dose: 100 mg Famotidine (Famotidine 20 Mg Tablet) 20 mg PO BID [facility] Last Admin: 10/02/22 07:50 Dose: 20 mg Ferrous Gluconate (Ferrous Gluconate 324 Mg Tablet) 324 mg PO DAILY [facility] Last Admin: 10/02/22 07:50 Dose: 324 mg Folic Acid (Folic Acid 1 Mg Tablet) 1 mg PO DAILY [facility] Last Admin: 10/02/22 07:50 Dose: 1 mg Heparin Sodium (Porcine) (Heparin 5,000 Unit/Ml Vial) 5,000 unit SQ Q12 [facility] Last Admin: 10/02/22 07:50 Dose: 5,000 unit Hydromorphone HCl (Hydromorphone 0.5 Mg/0.5 Ml Syringe) 0.5 mg IV Q2HP PRN; Protocol PRN Reason: Per Pain Protocol Last Admin: 09/30/22 04:11 Dose: 0.5 mg Vancomycin HCl 500 mg/ Sodium (Chloride) 100 mls @ 100 mls/hr IV Q24H [facility] Last Infusion: 10/01/22 15:00 Dose: Infused Lactulose (Lactulose 20 Gm/30 Ml Oral.Julia) 10 gm PO DAILYP PRN PRN Reason: Constipation Ondansetron HCl (Ondansetron 4 Mg/2 Ml Vial) 4 mg IV Q4HP PRN; Protocol PRN Reason: Nausea And Vomiting Senna (Sennosides 1 Tablet) 2 tab PO HSP PRN PRN Reason: Constipation Simvastatin (Simvastatin 40 Mg Tablet) 20 mg PO HS [facility] Last Admin: 10/01/22 21:35 Dose: Not Given Sodium Chloride (0.9 % Sodium Chloride 10 Ml Syringe) 10 ml IV Q8 [facility] Last Admin: 10/02/22 06:17 Dose: Not Given Tiotropium [place] (Tiotropium [place] 18 Mcg Inhalant) 18 mcg INH DAILY [facility] Last Admin: 10/02/22 07:51 Dose: Not Given Vancomycin HCl (Vancomycin Per Pharmacy) 1 order IV UD ELVIRA; Protocol A/P Narrative Plan of Treatment: Plan: Local wound Care. Clean with Hibiclens Bacitracin / gauze Kerlix BID Hold off on MRI elbow at this time. Monitor progress. Will be following patient during hospitalization. Time Spent With Patient Time: Total time spent is greater than 50% in coordination of care (as documented) at patient's floor/unit and/or counseling patient: QUALITY VTE Deep Vein Thrombosis/Pulmonary Embolism Present on Admission: No
--- NOTE | 2022-10-02 08:54 | Discharge Summary ---
Discharge Provider Provider IMPORTANT FOLLOW-UP INFORMATION FOR PCP: Patient information: Note initiated : 10/02/22 at 8:50 am Service Date, if different from initiated Date: [] Patient: Anahi Lebron 87 y/o F admitted on 09/28/22 for WEAKNESS. Chief Complaint: [] Date of admission: 09/28/22 19:13 Discharge date: 10/02/22 Primary care physician: NIKOLAY Randolph Consults: 09/28/22 Consult to Physician [CONS] Stat Comment: Consulting Provider: Jason Murguia Reason For Exam: Physician to Consult 09/30/22 08:21 Consult to Physician [CONS] Routine Comment: Consulting Provider: Derrick Vargas Reason For Exam: Physician to Consult COURSE Hospital Course Hospital course: Ms. 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 The patient was prescribed doxycycline and discharged to home. She later developed abscesses on her left wrist and left elbow. The patient presented once again to the emergency department on 09/23/2022 and the abscesses were lanced and cultured, the patient was prescribed Bactrim and discharged to home. The cultures did grow MRSA that was sensitive to both doxycycline and Bactrim. The patient developed nausea and vomiting on about 09/25/2022 then became progressively weaker. The patient returned to the ED on 09/28/2022, the day of admission and was found to be septic with an acute on chronic kidney disease injury, mild hyperkalemia in addition generalized weakness. The patient has not been able to take her oral antibiotics due to nausea and vomiting. Hospital medicine was asked to admit the patient for severe sepsis, acute on chronic kidney disease injury and intractable nausea and vomiting. 09/29 Patient was afebrile overnight, vitals stable. Leukocytosis improving, renal function improving. The patient has an unexpected amount of pain at her left elbow so ordered an MRI left elbow without contrast as the patient also has renal dysfunction. Continue vancomycin IV per pharmacy dosing. 09/30 Vitals stable overnight, no significant nighttime issues. Leukocytosis improving, hemoglobin has trended down to 8.8. Creatinine normal now. IV fluid discontinued. The patient continues to endorse left elbow tenderness, MRI left elbow ordered. Consulted Dr. Ortiz to evaluate the patient's left upper extremity wounds. CT chest did not show any pulmonary nodules or masses that were suspected on chest x-ray. 10/01 Vital stable overnight, afebrile. Leukocytosis has resolved. Canceled MRI elbow, the patient is moving the elbow now without pain therefore osteomyelitis is very unlikely. The patient continues to be confused and intermittently agitated. Discussed with family, possible discharge with family 24-hour supervision tomorrow on oral antibiotics with follow-up in the wound care clinic. 10/02 No significant events overnight. Patient was discharged to home with family in [place], that can provide 24/7 supervision until the patient is safe to live semi-independently again with the family Kathie in [facility]. Follow-up with primary care provider and also in the wound care clinic. The patient is discharged with doxycycline 100 mg twice daily for 5 more days. MRSA culture sensitivity was sensitive to tetracyclines. Physical exam Head: Atraumatic, normal inspection. Eyes: normal appearance, no scleral icterus. Neck: full ROM Respiratory: no respiratory distress. Cardiovascular: normal rate and rhythm, S1, S2. GI/Abdominal: soft, nontender, no guarding. Extremities: Severe tenderness to palpation at left elbow. Neurological: CN II-XII intact, intact motor, intact sensation. Psychiatric: Impaired cognition Skin: Left upper extremity abscesses at left elbow and left wrist packed with gauze. Assessment: 87 year old female with multiple comorbidities per below admitted for severe sepsis secondary to an abscess complicated by acute on chronic kidney disease injury, intractable nausea and vomiting. The patient is hemodynamically stable and lactic acid was normal. #Resolved severe sepsis secondary to left wrist and left elbow abscesses status post I&D -I&D of both elbow and wrist abscess cultures grew MRSA sensitive to tetracycline #Resolved acute on chronic kidney disease injury #Resolved metabolic encephalopathy secondary to sepsis #Resolved hyperkalemia #Resolved hypernatremia #Acute anemia #Resolved nausea and vomiting #Chronic metabolic acidosis #Essential hypertension #COPD #GERD #Osteoporosis #History of right nephrectomy due to renal tuberculosis #History of tuberculosis s/p 6 months of treatment Plan -Vancomycin IV per pharmacy, transition to doxycycline at discharge to complete about 7 days of antibiotic treatment. -Discontinue IV fluid. -Follow blood cultures x2. -Follow CBC w/ diff and IPP, monitor potassium. -Analgesics as needed. -Antiemetic as needed. -Dr. Ortiz consulted for wound cares. -Resume home albuterol, Coreg, cetirizine, Pepcid, simvastatin, Spiriva. -Holding home losartan, furosemide, spironolactone. -Regular diet. -PT consult. -DVT prophylaxis: Heparin SQ. -Disposition: Inpatient MedSurg status, likely discharge home tomorrow with family 24-hour supervision. Follow-up with wound care clinic. Discharge diagnosis: Left wrist and elbow abscesses secondary to MRSA Secondary discharge diagnosis: Sepsis secondary to wrist abscess and cellulitis Acute on chronic kidney disease kidney injury secondary to sepsis Metabolic encephalopathy secondary to sepsis Time Spent with Patient Time attestation: Total time spent providing and/or coordinating discharge services: Time spent: Greater than 30 minutes EXAM Constitutional Vitals: Temp Pulse Resp BP Pulse Ox O2 Del Method 97.6 F 63 18 149/75 98 Room Air 10/02/22 03:02 10/02/22 07:21 10/02/22 03:02 10/02/22 07:21 10/02/22 07:21 10/02/22 07:21 Discharge Data Data Completed and Pending Labs on day of discharge: Preliminary micro results at discharge 09/28/22 15:53 Blood Culture - Preliminary Blood 09/28/22 15:49 Blood Culture - Preliminary Blood Discharge Plan Patient/Caregiver Discharge Instructions Activity: increase activity as tolerated Diet: Regular Diet Prescriptions: New doxycycline monohydrate 100 mg capsule 100 mg PO BID 5 Days Qty: 10 0RF acetaminophen 325 mg Tablet 650 mg PO Q6HP PRN (Reason: Per Pain Protocol/Fever > 101) Qty: 30 0RF Continued famotidine 40 mg tablet 20 mg PO BID ergocalciferol (vitamin D2) 1,250 mcg (50,000 unit) capsule 1,250 mcg PO QWEEK cetirizine [All Day Allergy (cetirizine)] 10 mg tablet 10 mg PO HS folic acid 1 MG tablet 1 mg PO DAILY ferrous gluconate 324 MG tablet 324 mg PO DAILY Spiriva 1 tab PO DAILY simvastatin 40 mg tablet 20 mg PO HS Rx Instructions: takes 1/2 tab at bedtime. carvedilol 25 mg Tablet 25 mg PO BID Rx Instructions: must administer with a meal/food spironolactone 25 mg Tablet 25 mg PO DAILY calcitonin (salmon) 200 unit/actuation [place],Non-Aerosol 1 spray INTRANASAL (ALT) QDAY Rx Instructions: ALTERNATE NOSTRIL calcium carbonate 500 mg calcium (1,250 mg) tablet,chewable 500 mg PO PRN PRN (Reason: Acid Reflux) Patient Comments: [NO ORIGINAL SIG] vitamin A-vitamin C-vit E-min Tablet 1 tab PO DAILY potassium chloride 10 meq PO DAILY furosemide 20 mg tablet 20 mg PO QAM Qty: 5 0RF albuterol sulfate 2.5 mg /3 mL (0.083 %) solution for nebulization 2.5 mg inhalation Q4H PRN (Reason: shortness of breath or wheezing) Qty: 75 0RF losartan 100 mg tablet 100 mg PO QDAY Qty: 7 0RF Discontinued sulfamethoxazole-trimethoprim [Bactrim DS] 800-160 mg tablet 1 tab PO BID 14 Days Qty: 28 0RF Follow Up Plan Follow up with: Derrick Vargas MD [Physician] - (Post hospital follow-up for left elbow and left wrist abscesses.) Zhen Zabala ARNP [Primary Care Provider] - Patient Disposition: Home, Self-Care Plan of Treatment: Plan: Local wound Care. Clean with Hibiclens Bacitracin / gauze Kerlix BID Hold off on MRI elbow at this time. Monitor progress. Will be following patient during hospitalization. Overall status at discharge: patient is progressing back to baseline Discharge Orders: Discharge Order (Routine); Ordered 10/02/22 Ordered By: Jason ROJAS VTE Deep Vein Thrombosis/Pulmonary Embolism Present on Admission: No
[2022-10-02] MEDS: VANCOMYCIN 500 MG in 0.9 % SODIUM CHLORIDE 100 ML IV SCH (11:20)
--- NOTE | 2022-10-02 13:53 | General Surgery Progress Note ---
SUBJECTIVE Subjective Patient information: Note initiated : 10/02/22 at 1:47 pm Service Date, if different from initiated Date: [] Patient: Anahi Lebron 87 y/o F admitted on 09/28/22 for WEAKNESS. Chief Complaint: [] Additional PMFSH (Level 3 Only): Patient seen on wound care rounds with Mirtha Mao RNcommunications maintainer Nurse Powder Worker and Dinorah SHEIKH. Constitutional Vitals: Vital Signs Temp Pulse Resp BP Pulse Ox O2 Del Method 97.6 F 61 14 104/86 98 Room Air 10/02/22 11:15 10/02/22 11:15 10/02/22 11:15 10/02/22 11:15 10/02/22 11:15 10/02/22 11:15 Period Temp Pulse Resp BP Sys/Rogers Pulse Ox O2 Del Method O2 Flow Rate Last 24 Hr 97.5 F-98.0 F 61-68 12-22 104-162/63-86 95-100 Room Air-Room Air Intake and Output 10/02/22 10/02/22 10/02/22 03:59 11:59 19:59 Intake Total 350 360 400 Output Total 476 151 Balance -126 209 400 Weight 120 lb Intake & Output: Intake & Output 10/02/22 10/02/22 10/02/22 03:59 11:59 19:59 Intake Total 350 360 400 Output Total 476 151 Balance -126 209 400 Weight 120 lb Intake: Oral 350 360 400 Output: Void Amount 475 150 # of times incontinent of urine 1 1 Other: Meal Breakfast Breakfast Percent of Meal Consumed 100% 50% Feeding Ability Independent Urine Appearance Clear Clear Urine Color Yellow Yellow Urine Odor Normal # Voids 2 Exam: AVSS. Looks good and feels well. Keen to be discharged. Will be going to [facility] to live with her friends/ family. L/E, Healed wound sites LEFT anterior wrist and medial elbow. S/P I and D by ER physician. [facility]. No NV deficits. Superficial demarcated epidermal scales. NO debridement needed. Instructed about skin care. A/P Narrative A/P Narrative: Assessment; Satisfactory progress form wound healing point of view. Plan of Treatment: Plan: Local wound Care. Clean with Hibiclens Bacitracin / Band Aid Reinforcing gauze Kerlix PRN NO f/u needed if she is going [place]. [place] 1 [place]. Time Spent With Patient Time: Total time spent is greater than 50% in coordination of care (as documented) at patient's floor/unit and/or counseling patient: Initial: Total time with patient: Less than 40 minutes
== END 2022-10-02 12:37 | disposition home or self-care (01) | DRG 871 ==
LOC: ED 15:16 → ICU 19:13 → MEDSUR 09-30 14:25
PROVIDERS: ADMIT Internal Medicine; ATTEND Internal Medicine